=== PATIENT | male | born 1955 | race Caucasian/White ===

== ENCOUNTER 2021-05-01 11:36 | Emergency (ER) | payer MEDICARE, MEDICAID, SELFPAY ==
--- NOTE | 2021-05-01 11:45 | ED_ITS ---
HPI - General Adult General Chief complaint: Dizziness Stated complaint: HIGH BLOOD SUGAR 548PER EMS Time Seen by Provider: 05/01/21 11:45 Source: patient and EMS Mode of arrival: EMS Limitations: no limitations History of Present Illness HPI narrative: 66 yo male from [place] hx of IDDM unsure of the name for his insulin, HTN, HLD, methadone use came here with only a few days of insulin he ran out 3 days ago called 911 for elevated blood sugars complaint: hyperglycemia Onset (ago): day(s) (3) Severity: moderate Relieving factors: none Exacerbating factors: other (lack of insulin) Associated symptoms: loss of appetite Treatments prior to arrival: none Related Data Previous Rx's Medication Instructions Recorded insulin asp prt-insulin aspart 43 unit SUBCUT QAM #15 ml 05/01/21 [Novolog Mix 70-30FlexPen U-100] Allergies Allergy/AdvReac Type Severity Reaction Status Date / Time No Known Allergies Allergy Verified 05/01/21 11:51 Review of Systems Review of Systems: Constitutional : No Weight loss, No Fever, No Chills, No Fatigue, No Malaise ENT/Mouth : No sore throat, No Rhinorrhea Eyes: No Eye Pain, No Swelling, No Redness Cardiovascular : No Chest Pain, No SOB, No Dyspnea on Exertion, No Orthopnea, No Edema, No Palpitations Respiratory : No Cough, No Sputum, No Wheezing Gastrointestinal : No Nausea, No Vomiting, No Diarrhea, No Constipation, No abdominal Pain, No Hematochezia, No Melena Genitourinary : No Dysuria, No Urinary Frequency, No Hematuria, Musculoskeletal : No joint pain, No Myalgias, No Joint Swelling Skin : No Skin Lesions, No rash Neuro : No Weakness, No Numbness, No Dizziness, No Headache Psych : No Anxiety/Panic, No Depression Heme/Lymph: No Bruising, No Bleeding,No Lymphadenopathy Endocrine : pos Polyuria, No Polydipsia, pos elevated blood sugars All other systems reviewed and are negative [facility] Past Medical History Attestation statement: The following information was validated with the patient. Medical History Diabetes HLD (hyperlipidemia) HTN (hypertension) Opiate dependence Social History Social History (Updated 05/01/21 @ 12:06 by Neeru Smith DO) Patient Tobacco Use Status: Former Tobacco user Substance Use Type: Former Substance User Advance Directives: No Advance Directives Information Provided: No Physical Exam Vital Signs: Vital Signs: Last Vital Signs Temp 98.3 F 05/01/21 12:34 Pulse 77 05/01/21 12:34 Resp 12 05/01/21 12:34 BP 159/56 H 05/01/21 12:34 Pulse Ox 97 05/01/21 12:34 Body Mass Index 30.9 Appearance: Alert. Oriented X3. No acute distress. Eyes: Pupils equal, round and reactive to light. ENT: Pharynx normal. Neck: Normal inspection. Neck supple. CVS: Normal heart rate and rhythm. Pulses normal. Respiratory: No respiratory distress. Breath sounds normal. Abdomen: Soft and non-tender. Skin: Skin warm and dry. Normal skin color. Normal skin turgor. Extremities: No lower extremity edema. No calf ttp Neuro: Oriented X 3. No motor deficit. No sensory deficit. Course Course Course Narrative: BS down no signs of DKA - will Rx his home humalog 70/30 of 43 units in the AM and 28 units at PM Medical Decision Making MDM Narrative Medical decision making narrative: 66 yo male with hx of HTN, HLD, IDDM ran out of his insulin 3 days ago he came here from [place] - states he only had a couple of days worth, he isn't even sure what insulin he takes, we've asked him for a picture from home of the pen he is trying to get a family/friend to take a picture and send it to him, he also notes he usually has methadone Rx from [place] but took his last dose today - I am not sure why he came here from [place] without his medications and after questioning it seems he is not either. Lab Data Result diagrams: 05/01/21 12:26 05/01/21 12:26 Labs: Lab Results 05/01/21 05/01/21 05/01/21 Range/Units 11:52 12:26 12:26 WBC 6.5 (4.8-10.8) X10*3/uL RBC 3.88 L (4.60-5.80) X10*6/uL Hgb 11.5 L (14.0-18.0) g/dl Hct 32.1 L (42-52) % MCV 82.7 (80-98) fL MCH 29.6 (27.0-33.0) pg MCHC 35.8 (31.0-36.0) g/dl RDW 12.3 (11.0-16.0) % Plt Count 152 L (160-400) X10*3/uL MPV 11.9 (9.4-12.4) fL Immature Gran % (Auto) 0.2 (0.0-0.4) % Neut % (Auto) 67.9 (45-73) % Lymph % (Auto) 28.2 (20-40) % [place] % (Auto) 1.1 L (2-11) % Eos % (Auto) 2.3 (0-4) % Baso % (Auto) 0.3 (0-2) % Lymph # (Auto) 1.8 (1.2-4.9) X10*3/uL [place] # (Auto) 0.1 (0.1-1.2) X10*3/uL Eos # (Auto) 0.2 (0.0-0.4) X10*3/uL Baso # (Auto) 0.0 (0.0-0.2) X10*3/uL Abs Immat Gran (auto) 0.01 (0.00-0.03) X10*3/uL Absolute Neuts (auto) 4.4 (2.0-8.3) X10*3/uL Absolute Nucleated RBC 0.000 (0.0-0.012) X10*3/uL Nucleated RBC % (auto) 0.0 (0.0-0.2) /100WBC VBG pH (7.32-7.43) VBG pCO2 mmHg VBG pO2 mmHg VBG HCO3 (22-26) mmol/L VBG O2 Saturation % VBG Base Excess mmol/L Sodium 133 L (135-145) mmol/L Potassium 4.4 (3.3-5.1) mmol/L Chloride 99 (96-108) mmol/L Carbon Dioxide 24 (22-29) mmol/L Anion Gap 14 (12-20) BUN 25 H (9-16) mg/dL Creatinine 1.42 H (0.5-1.4) mg/dL Estim Creat Clear Calc 48.6 Estimated GFR 50 POC Glucose 564 H* (60-115) mg/dL Random Glucose 595 H* (60-115) mg/dL Calcium 9.4 (8.4-10.2) mg/dL Magnesium (1.6-2.6) mg/dL Total Bilirubin (0.0-1.0) mg/dL Direct Bilirubin (0.0-0.5) mg/dL AST (5-37) U/L ALT (0-40) U/L Alkaline Phosphatase (39-117) U/L Total Protein (6.5-8.0) g/dL Albumin (3.5-5.0) g/dL Urine Color Urine Appearance Urine pH (5.0-8.0) Ur Specific [place] (1.005-1.025) Urine Protein (NEG-TRACE) MG/DL Urine Glucose (UA) (NEG) MG/DL Urine Ketones (NEG) MG/DL Urine Blood (NEG) Urine Nitrite (NEG) Ur Leukocyte Esterase (NEG) Urine RBC (0) /HPF Urine WBC (0-4) /HPF Ur Squamous Epith Cells /LPF Urine Bacteria /LPF Acetone, Qual (Negative) 05/01/21 05/01/21 05/01/21 Range/Units 12:26 12:26 12:32 WBC (4.8-10.8) X10*3/uL RBC (4.60-5.80) X10*6/uL Hgb (14.0-18.0) g/dl Hct (42-52) % MCV (80-98) fL MCH (27.0-33.0) pg MCHC (31.0-36.0) g/dl RDW (11.0-16.0) % Plt Count (160-400) X10*3/uL MPV (9.4-12.4) fL Immature Gran % (Auto) (0.0-0.4) % Neut % (Auto) (45-73) % Lymph % (Auto) (20-40) % [place] % (Auto) (2-11) % Eos % (Auto) (0-4) % Baso % (Auto) (0-2) % Lymph # (Auto) (1.2-4.9) X10*3/uL [place] # (Auto) (0.1-1.2) X10*3/uL Eos # (Auto) (0.0-0.4) X10*3/uL Baso # (Auto) (0.0-0.2) X10*3/uL Abs Immat Gran (auto) (0.00-0.03) X10*3/uL Absolute Neuts (auto) (2.0-8.3) X10*3/uL Absolute Nucleated RBC (0.0-0.012) X10*3/uL Nucleated RBC % (auto) (0.0-0.2) /100WBC VBG pH 7.49 H (7.32-7.43) VBG pCO2 30 mmHg VBG pO2 183 mmHg VBG HCO3 23 (22-26) mmol/L VBG O2 Saturation 99.0 % VBG Base Excess 0.8 mmol/L Sodium (135-145) mmol/L Potassium (3.3-5.1) mmol/L Chloride (96-108) mmol/L Carbon Dioxide (22-29) mmol/L Anion Gap (12-20) BUN (9-16) mg/dL Creatinine (0.5-1.4) mg/dL Estim Creat Clear Calc Estimated GFR POC Glucose (60-115) mg/dL Random Glucose (60-115) mg/dL Calcium (8.4-10.2) mg/dL Magnesium 2.0 (1.6-2.6) mg/dL Total Bilirubin 0.5 (0.0-1.0) mg/dL Direct Bilirubin 0.2 (0.0-0.5) mg/dL AST 17 (5-37) U/L ALT 18 (0-40) U/L Alkaline Phosphatase 112 (39-117) U/L Total Protein 7.7 (6.5-8.0) g/dL Albumin 4.4 (3.5-5.0) g/dL Urine Color YELLOW Urine Appearance CLEAR Urine pH 6.0 (5.0-8.0) Ur Specific [place] <= 1.005 (1.005-1.025) Urine Protein TRACE (NEG-TRACE) MG/DL Urine Glucose (UA) >=1000 H (NEG) MG/DL Urine Ketones NEG (NEG) MG/DL Urine Blood NEG (NEG) Urine Nitrite NEG (NEG) Ur Leukocyte Esterase NEG (NEG) Urine RBC 0-2 (0) /HPF Urine WBC 0 (0-4) /HPF Ur Squamous Epith Cells NONE /LPF Urine Bacteria NONE /LPF Acetone, Qual Negative (Negative) 05/01/21 Range/Units 13:15 WBC (4.8-10.8) X10*3/uL RBC (4.60-5.80) X10*6/uL Hgb (14.0-18.0) g/dl Hct (42-52) % MCV (80-98) fL MCH (27.0-33.0) pg MCHC (31.0-36.0) g/dl RDW (11.0-16.0) % Plt Count (160-400) X10*3/uL MPV (9.4-12.4) fL Immature Gran % (Auto) (0.0-0.4) % Neut % (Auto) (45-73) % Lymph % (Auto) (20-40) % [place] % (Auto) (2-11) % Eos % (Auto) (0-4) % Baso % (Auto) (0-2) % Lymph # (Auto) (1.2-4.9) X10*3/uL [place] # (Auto) (0.1-1.2) X10*3/uL Eos # (Auto) (0.0-0.4) X10*3/uL Baso # (Auto) (0.0-0.2) X10*3/uL Abs Immat Gran (auto) (0.00-0.03) X10*3/uL Absolute Neuts (auto) (2.0-8.3) X10*3/uL Absolute Nucleated RBC (0.0-0.012) X10*3/uL Nucleated RBC % (auto) (0.0-0.2) /100WBC VBG pH (7.32-7.43) VBG pCO2 mmHg VBG pO2 mmHg VBG HCO3 (22-26) mmol/L VBG O2 Saturation % VBG Base Excess mmol/L Sodium (135-145) mmol/L Potassium (3.3-5.1) mmol/L Chloride (96-108) mmol/L Carbon Dioxide (22-29) mmol/L Anion Gap (12-20) BUN (9-16) mg/dL Creatinine (0.5-1.4) mg/dL Estim Creat Clear Calc Estimated GFR POC Glucose 308 H (60-115) mg/dL Random Glucose (60-115) mg/dL Calcium (8.4-10.2) mg/dL Magnesium (1.6-2.6) mg/dL Total Bilirubin (0.0-1.0) mg/dL Direct Bilirubin (0.0-0.5) mg/dL AST (5-37) U/L ALT (0-40) U/L Alkaline Phosphatase (39-117) U/L Total Protein (6.5-8.0) g/dL Albumin (3.5-5.0) g/dL Urine Color Urine Appearance Urine pH (5.0-8.0) Ur Specific [place] (1.005-1.025) Urine Protein (NEG-TRACE) MG/DL Urine Glucose (UA) (NEG) MG/DL Urine Ketones (NEG) MG/DL Urine Blood (NEG) Urine Nitrite (NEG) Ur Leukocyte Esterase (NEG) Urine RBC (0) /HPF Urine WBC (0-4) /HPF Ur Squamous Epith Cells /LPF Urine Bacteria /LPF Acetone, Qual (Negative) Discharge Plan Discharge Clinical Impression: Acute hyperglycemia Patient Disposition: Home, Self-Care Instructions: Diabetic Hyperglycemia (ED) Additional Instructions: return to ED for any worsening symptoms or concerns PLEASE CALL YOUR DOCTOR IN [place] SOON POSSIBLE Prescriptions: New insulin asp prt-insulin aspart [Novolog Mix 70-30FlexPen U-100] 100 unit/mL (70-30) insulin pen 43 unit subcut QAM Qty: 15 RF: 0 Referrals: Physician,None [Primary Care Provider] - 3 days ([place] doctor)
[2021-05-01 11:51] VITALS: BP 149/76; BP 163/65; PULSE 75; PULSE 81; RESP 12; TEMP 36.8; O2SAT 98; BMI 30.9
[2021-05-01 11:56] LABS: Glucose, Whole Blood 564 mg/dL (60-115)
[2021-05-01] MEDS: Insulin Regular, Human 100 UNIT/ML 3 ML VIAL 10 UNIT IVPUSH (12:14)
[2021-05-01] MEDS: 0.9 % Sodium Chloride 1,000 ML 999 ML IVCONT (12:18)
--- NOTE | 2021-05-01 12:22 | PC.NURSE ---
Pt alert, oriented, POC 564 on arrival, insulin coverage given as documented. The pt states he has been without insulin x3days, loss of appetite, nausea no vomiting. He reports he came from [place] 3wks ago, is on methadone and brought his liquid methadone with him from [place], his last dose this morning. Pt reports he does not have a PCP here in [place] and has not seen a doctor since arriving here. Labs were drawn, fluid hung. Pt resting quietly.
[2021-05-01 12:33] LABS: MANUAL DIFF FLAG NO
[2021-05-01 12:34] VITALS: BP 159/56; PULSE 77; RESP 12; TEMP 36.8; O2SAT 97
[2021-05-01 12:34] LABS: Basophils Percent Auto 0.3 % (0-2); Eosinophils Absolute Auto 0.2 X10*3/uL (0.0-0.4); Eosinophils Percent Auto 2.3 % (0-4); Hematocrit 32.1 % (42-52); Hemoglobin 11.5 g/dl (14.0-18.0); Imm Gran Abs Auto 0.01 X10*3/uL (0.00-0.03); Imm Gran Pct Auto 0.2 % (0.0-0.4); Lymphocytes Absolute Auto 1.8 X10*3/uL (1.2-4.9); Lymphocytes Percent Auto 28.2 % (20-40); Mean Corpuscular HGB Conc 35.8 g/dl (31.0-36.0); Mean Corpuscular Hemoglobin 29.6 pg (27.0-33.0); Mean Corpuscular Volume 82.7 fL (80-98); Mean Platelet Volume 11.9 fL (9.4-12.4); Monocytes Absolute Auto 0.1 X10*3/uL (0.1-1.2); Monocytes Percent Auto 1.1 % (2-11); Neutrophils Absolute Auto 4.4 X10*3/uL (2.0-8.3); Neutrophils Percent Auto 67.9 % (45-73); Platelet Count 152 X10*3/uL (160-400); Red Blood Count 3.88 X10*6/uL (4.60-5.80); Red Cell Distribution Width 12.3 % (11.0-16.0); White Blood Count 6.5 X10*3/uL (4.8-10.8)
[2021-05-01 12:37] LABS: Glucose Urine UA >=1000 MG/DL (NEG); Leukocyte Esterase Urine NEG (NEG); Nitrite Urine NEG (NEG); Specific Gravity - Urine <= 1.005 (1.005-1.025); Urine Blood NEG (NEG); Urine Ketones NEG (NEG); Urine Protein TRACE MG/DL (NEG-TRACE)
[2021-05-01 12:39] LABS: Venous Blood Gas Refer to POC result
[2021-05-01 12:40] LABS: VBG Base Excess 0.8 mmol/L; VBG HCO3 23 mmol/L (22-26); VBG pCO2 30 mmHg; VBG pH 7.49 (7.32-7.43); VBG pO2 183 mmHg
[2021-05-01 12:43] LABS: Appearance Urine CLEAR; Color Urine YELLOW
[2021-05-01 12:49] LABS: RBC Urine 0-2 /HPF (0); WBC Urine 0 /HPF (0-4)
[2021-05-01 13:03] LABS: Alanine Aminotransferase 18 U/L (0-40); Albumin Level 4.4 g/dL (3.5-5.0); Alkaline Phosphatase 112 U/L (39-117); Aspartate Amino Transferase 17 U/L (5-37); Bilirubin Direct 0.2 mg/dL (0.0-0.5); Bilirubin Total 0.5 mg/dL (0.0-1.0); Total Protein 7.7 g/dL (6.5-8.0)
[2021-05-01 13:06] LABS: Anion Gap 14 (12-20); Blood Urea Nitrogen 25 mg/dL (9-16); Calcium 9.4 mg/dL (8.4-10.2); Carbon Dioxide 24 mmol/L (22-29); Chloride 99 mmol/L (96-108); Creatinine Clr Calc Pharmacy 48.6; Estimated Glomerular Filt Rate 50; Glucose Random 595 mg/dL (60-115); Potassium 4.4 mmol/L (3.3-5.1); Sodium 133 mmol/L (135-145)
[2021-05-01 13:14] LABS: Acetone, serum QL Negative (Negative)
[2021-05-01 13:18] LABS: Glucose, Whole Blood 308 mg/dL (60-115)
== END 2021-05-01 15:08 | disposition home or self-care (01) ==
PROVIDERS: Emergency Provider Emergency Medicine
DX: E11.65 Type 2 diabetes mellitus with hyperglycemia (principal); I10 Essential (primary) hypertension; F11.20 Opioid dependence, uncomplicated; Z79.4 Long term (current) use of insulin
CPT/HCPCS: 36415; 80048; 80076; 81001; 82009; 82947; 83735; 85025; 96361; 96374; 99284

== ENCOUNTER 2022-09-01 09:32 | Emergency (ER) | payer MEDICARE, MEDICAID, SELFPAY ==
[2022-09-01 11:15] VITALS: BP 127/61; PULSE 108; RESP 18; TEMP 36.7; O2SAT 95; BMI 30.5
[2022-09-01 13:11] LABS: Appearance Urine Clear; Color Urine Yellow; Glucose Urine UA >=1000 mg/dL (Negative); Leukocyte Esterase Urine Negative (Negative); Nitrite Urine Negative (Negative); Specific Gravity - Urine 1.015 (1.005-1.025); UMIC TRIGGER UACC YES; Urine Blood Negative (Negative); Urine Ketones Negative (Negative); Urine Protein Trace mg/dL (Neg-Trace)
[2022-09-01 13:38] LABS: Bacteria Urine None Seen (None Seen); Hyaline Casts Urine 0-2 /LPF (0-2); RBC Urine 0-2 /HPF (0-2); Squamous Epithelial Cell Urine 0-2 /HPF (0-2); WBC Urine 0-5 /HPF (0-5)
[2022-09-01 15:25] VITALS: BP 108/46; PULSE 87; RESP 16; TEMP 36.1; O2SAT 97
== END 2022-09-01 17:47 | disposition left against medical advice (07) ==
PROVIDERS: Emergency Provider Emergency Medicine
DX: M79.10 Myalgia, unspecified site (principal); M54.50 Low back pain, unspecified
CPT/HCPCS: 81001; 81003; 99282

== ENCOUNTER 2024-11-26 06:49 | Inpatient (IN) | payer MEDICARE, SELFPAY ==
[2024-11-26] VITALS (8 sets, daily range): BP systolic 145–214; BP diastolic 45–93; PULSE 72–93; RESP 12–20; TEMP 36.6–37.6; O2SAT 97–99; BMI 30.6
--- NOTE | ~2024-11-26 | XR_ITS ---
CLINICAL HISTORY: fall, pain Frontal chest and two views of the ribs. Comparison: None Findings: The lungs are adequately expanded. No focal consolidation. No effusion or pneumothorax. Cardiac and mediastinal contours are within normal limits. No acute osseous abnormality. Specifically, no rib fracture detected. Impression: No acute process. This document has been electronically signed by: Lew Waldrop MD on 11/26/2024 07:53:43
--- NOTE | ~2024-11-26 | CT_ITS ---
EXAMINATION: CT HEAD AND FACIAL BONES WITHOUT CONTRAST CLINICAL INFORMATION: Syncope and fall. COMPARISON: No prior. TECHNIQUE: Contiguous axial imaging was performed from the skull base to vertex along with spiral CT of the maxillofacial bones without intravenous administration of contrast. Sagittal, coronal, and thin section axial reformatted images were constructed from the axial data set. This CT examination was performed using dose optimization techniques as appropriate, variously including the following: *Automated exposure control *Adjustment of mA and/or kV according to patient size (this includes techniques or standardized protocols for targeted exams where dose is matched to indication/reason for exam; i.e. extremities or head) *Use of iterative reconstruction technique DLP: 678.7 mGy-cm (CT Head) 329.1 mGy-cm (CT Facial Bones) FINDINGS: There is no evidence of intracranial hemorrhage or extra-axial fluid collection. There is no mass effect, or edema. No CT evidence of acute territorial infarct. Ventricles, sulci, and cisterns are normal in size and configuration for patient age. No hydrocephalus. No midline shift. Negative hyperdense MCA sign. Negative insular ribbon signs. There is mild low density supratentorial white matter changes, in keeping with small vessel ischemia. There are old lacunar type infarcts evident in the anterior gangliocapsular regions and bilateral subinsular regions. No posterior fossa abnormalities. Partial empty sella. Mild atheromatous calcification of the bilateral carotid siphons. Globes and orbital contents image normally. No fractures. Bilateral lens implants. No extracranial soft tissue abnormalities. The paranasal sinuses, mastoid air cells, and tympanic cavities are normally aerated. Nasal septum is midline. No suspicious bony abnormalities. Calvarium intact. Minimal buckling of the left nasal bone, uncertain chronicity. Correlate with point tenderness. Otherwise no fractures. Maxillofacial bones are intact. Mandible is intact. TM joints are normally oriented. CT/CT facial bones wo IV con IMPRESSION: 1. No acute intracranial abnormalities. 2. Minimal buckling of the left nasal bone, uncertain in chronicity. Correlate with point tenderness. Otherwise, no evidence of acute maxillofacial fracture. 3. Ancillary findings as discussed. Electronically signed by: Que Ramey MD 11/26/2024 10:02 AM [facility] [place]
--- NOTE | ~2024-11-26 | US_ITS ---
EXAMINATION: US RETROPERITONEAL LIMITED (RENAL ONLY) CLINICAL INFORMATION: 8 TI with hyperkalemia. COMPARISON: None available. TECHNIQUE: Routine ultrasound RETROPERITONEUM was performed. FINDINGS: RIGHT KIDNEY: 10.2 x 4.5 x 4.3 cm (SAG x AP x TRV). The kidney is normal in size, contour, and echogenicity. Renal cortical thickness is normal. No calculi or focal parenchymal lesions. No hydronephrosis. LEFT KIDNEY: 9.6 x 5.4 x 4.5 cm (SAG x AP x TRV). The kidney is normal in size, contour, and echogenicity. Renal cortical thickness is normal. No calculi or focal parenchymal lesions. No hydronephrosis. US/US renal BI IMPRESSION: Normal renal ultrasound. Electronically signed by: Dony Antonio MD 11/28/2024 07:53 AM [facility]
--- NOTE | ~2024-11-26 | CT_ITS ---
EXAMINATION: CT CERVICAL SPINE WITHOUT CONTRAST CLINICAL INFORMATION: Syncope. Status post fall. COMPARISON: None available. TECHNIQUE: Contiguous axial images through the cervical spine using 3 mm collimation with bone and soft tissue algorithm. Sagittal and coronal reformatted images acquired. This CT examination was performed using dose optimization techniques as appropriate, variously including the following: *Automated exposure control *Adjustment of mA and/or kV according to patient size (this includes techniques or standardized protocols for targeted exams where dose is matched to indication/reason for exam; i.e. extremities or head) *Use of iterative reconstruction technique. DLP: 1517 mGy centimeters. FINDINGS: Limited by patient's motion artifact. Craniocervical junction is intact. Partially calcified periodontal pannus formation. C1 is intact. C2 is intact. C3 is intact. C4 is intact. C5 is intact. C6 is intact. C7 is intact. There is normal alignment. Multilevel marginal osteophyte formation more conspicuous at C6-7 and to a lesser extent C5-6 and C3-4 levels. Calcifications of the ligamentum flavum, C5-6 and C6-7 levels. No gross prevertebral compartment hematoma. Calcified plaques in the carotid bulbs and proximal ICAs more conspicuous on the right side. CT/CT cervical spine wo IV con IMPRESSION: No acute fracture or trauma-related listhesis. Multilevel cervical spondylosis more conspicuous at C6-7 and C5-6. Atherosclerosis disease, carotid arteries. Osteopenia versus osteoporosis. Fleischner guidelines were followed. Electronically signed by: Robby Oneill MD 11/26/2024 09:55 AM [facility]
--- NOTE | ~2024-11-26 | CT_ITS ---
EXAMINATION: CT HEAD AND FACIAL BONES WITHOUT CONTRAST CLINICAL INFORMATION: Syncope and fall. COMPARISON: No prior. TECHNIQUE: Contiguous axial imaging was performed from the skull base to vertex along with spiral CT of the maxillofacial bones without intravenous administration of contrast. Sagittal, coronal, and thin section axial reformatted images were constructed from the axial data set. This CT examination was performed using dose optimization techniques as appropriate, variously including the following: *Automated exposure control *Adjustment of mA and/or kV according to patient size (this includes techniques or standardized protocols for targeted exams where dose is matched to indication/reason for exam; i.e. extremities or head) *Use of iterative reconstruction technique DLP: 678.7 mGy-cm (CT Head) 329.1 mGy-cm (CT Facial Bones) FINDINGS: There is no evidence of intracranial hemorrhage or extra-axial fluid collection. There is no mass effect, or edema. No CT evidence of acute territorial infarct. Ventricles, sulci, and cisterns are normal in size and configuration for patient age. No hydrocephalus. No midline shift. Negative hyperdense MCA sign. Negative insular ribbon signs. There is mild low density supratentorial white matter changes, in keeping with small vessel ischemia. There are old lacunar type infarcts evident in the anterior gangliocapsular regions and bilateral subinsular regions. No posterior fossa abnormalities. Partial empty sella. Mild atheromatous calcification of the bilateral carotid siphons. Globes and orbital contents image normally. No fractures. Bilateral lens implants. No extracranial soft tissue abnormalities. The paranasal sinuses, mastoid air cells, and tympanic cavities are normally aerated. Nasal septum is midline. No suspicious bony abnormalities. Calvarium intact. Minimal buckling of the left nasal bone, uncertain chronicity. Correlate with point tenderness. Otherwise no fractures. Maxillofacial bones are intact. Mandible is intact. TM joints are normally oriented. CT/CT head/brain wo IV con IMPRESSION: 1. No acute intracranial abnormalities. 2. Minimal buckling of the left nasal bone, uncertain in chronicity. Correlate with point tenderness. Otherwise, no evidence of acute maxillofacial fracture. 3. Ancillary findings as discussed. Electronically signed by: Que Ramey MD 11/26/2024 10:02 AM [facility]
--- OUTSIDE RECORDS SUMMARY | 2024-11-26 06:52 | XMS_ITS | Patient Health Record ---
Author Organization [address] [place] [address] Care Team Providers Care Animation Camera Operator Name Role Phone ANA JACKSON Primary Care Provider Unavailabl e Allergies Allergen (clinical drug ingredient) Drug/Non Drug Allergy documented on EMR Reaction Allergy Type Onset Date Status fluticasone Flonase Unknown Drug Allergy Activ e montelukast Singulair Unknown Drug Allergy Activ e Reason For Referral No Information Medications Medication SIG (Take, Route, Frequency, Duration) Notes Start Date End Date Status HumaLOG Mix 75/25 KwikPen Active Losartan Potassium-HCTZ Active Gabapentin - P#6086([facility])NEUROPA THY [id number]%LIDOCA INE3%BACLOFEN3%KALEB APENTIN3% TOPICALLY 2xDAILY for 30 DAYS 08/08/2019 Active Nortriptyline HCl 25 MG 1 capsule Orally Q HS for 30 day(s) 10/18/2018 Active Levothyroxine Sodium Active Lyrica 75 MG 1 capsule Orally every 8 hours 04/05/2019 Active COMPOUND (MEDICAID) RHEUMATOID ARTHRITIS DICLOFENAC 10% [place] 5% [place] 5% APPLY 1-2 GRAMS TOPICAL 3-4 TIMES A DAY for 30 days 01/18/2018 Active Lidoderm 5 % 2 patch to skin remove after 12 hours Externally Once a day for 30 days 06/05/2019 Active HYDROcodone-Acetaminop hen 5-325 MG 1 tablet as needed Orally As prescribed by PCP 07/06/2017 Active Problems Problem Type SNOMED Code ICD Code Onset Dates Problem Status W/U Status Risk Notes Problem Type II diabetes mellitus without complication (593880132) Type 2 diabetes mellitus without complications (E11.9) Active confirmed Problem Diabetic neuropathy (372714976) Diabetes mellitus due to underlying condition with diabetic polyneuropathy (E08.42) Active confirmed Problem Diabetic peripheral neuropathy associated with type 2 diabetes mellitus (8324297447986) Type 2 diabetes mellitus with diabetic neuropathy, unspecified (E11.40) Active confirmed Problem Opioid dependence (86425879) -Opioid dependence, uncomplicated (F11.20) Active confirmed Problem Asthma (371107027) Other asthma (J45.998) Active confirmed Problem Lumbosacral spondylosis without myelopathy (65662274) -Lumbar facet syndrome (M47.816) Active confirmed Problem Chronic pain syndrome (276202492) Chronic pain syndrome (G89.4) Active confirmed Problem 03108138 Other chronic pa in (G89.29) Active confirmed Problem Walking disability (344310701) Difficulty in walking (R26.2) Active confirmed Problem Diabetic neuropathy (822126031) Diabetic neuropathy (E11.40) Active confirmed Plan Of Treatment Pending Test Test Name Order Date Shoulder, left Xray is order 08/03/2016 Lumbar spine MRI (without contrast) is o rder 08/03/2016 Lumbar spine MRI (without contrast) is o rder 01/19/2017 Lumbar spine MRI (without contrast) is o rder 12/11/2018 Lumbar spine MRI (without contrast) is o rder 01/27/2017 Lumbar trigger point (TP3) injection 10/2018 Lumbar trigger point (TP3) injection si joint inj ... blank 01/02/2014 si joint inj ... blank 03/05/2014 tennis' elbow inj ... blank 11/21/2013 EMG of Lower Extremities 11/21/2013 *Methadone (GC/MS), Urine 09/02/2016 *Opiates Confirmation, Urine 09/02/2016 heroin toxasure addon 09/02/2016 *Oxycodone/Oxymorphone Confirm 7 *Oxycodone/Oxymorphone Confirm 6 *Benzodiazepines Confirm, Urine 03/08/20 17 *Benzodiazepines Confirm, Urine 04/05/20 17 *Fentanyl/Norfentanyl, Confirm 6 *Fentanyl/Norfentanyl, Confirm 8 RT subacromial bursa injection 7 Urine COLLECTION was performed today Urine COLLECTION was performed today 09/2018 Urine COLLECTION was performed today Urine COLLECTION was performed today 08/2017 Urine COLLECTION was performed today Urine COLLECTION was performed today Urine COLLECTION was performed today 04/2017 Urine COLLECTION was performed today *Tapentadol Confirmation 12/19/2017 Zolpidem (Ambien) Urine Confirm 04/2018 *Lenco Opiates confirmation 07/30/2017 *Lenco Fentanyl in urine 07/30/2017 Carisoprodol/Meprobamate Confirm, Ur ine 12/19/2017 [facility] Lab Buccal Swabs DNA 06/08/2017 Insurance Providers Payer Name Payer Address Payer Phone Subscriber Number Group Number Insured Name Patient Relationship to Insured Coverage Start Date Coverage End Date [employer] [address] [place] [address] [id number] Robin Shukla Self - patient is the insured Medical (General) History Medical History History ICD Code Rheumatoid arthritis 714.0 Hepatitis C carrier V02.62 Diabetes mellitus without me ntion of complication, type II or unspecified type, not stated as uncontrolled 250.00 Asthma, unspecified with status asthmati cus 493.91 THYROIID Hypertension Surgical History Surgery Date(Month/Year) Lipomectomy. 1998 Hospitalization History Reason Date(Month/Year) DENIES ANY RECENT HOSPITALIZATIONS. N/A
[2024-11-26 07:06] LABS: Glucose, Whole Blood 106 mg/dL (60-115)
[2024-11-26 07:25] LABS: MANUAL DIFF FLAG NO
[2024-11-26 07:28] LABS: Basophils Absolute Auto 0.1 X10*3/uL (0.0-0.2); Eosinophils Absolute Auto 0.3 X10*3/uL (0.0-0.4); Eosinophils Percent Auto 2.6 % (0-4); Hematocrit 25.4 % (42.0-52.0); Hemoglobin 8.5 g/dl (14.0-18.0); Imm Gran Abs Auto 0.04 X10*3/uL (0.00-0.03); Imm Gran Pct Auto 0.4 % (0.0-0.4); Lymphocytes Absolute Auto 1.8 X10*3/uL (1.2-4.9); Lymphocytes Percent Auto 17.3 % (20-40); Mean Corpuscular HGB Conc 33.5 g/dl (31.0-36.0); Mean Corpuscular Hemoglobin 29.4 pg (27.0-33.0); Mean Corpuscular Volume 87.9 fL (80.0-98.0); Mean Platelet Volume 10.8 fL (9.4-12.4); Monocytes Absolute Auto 0.7 X10*3/uL (0.1-1.2); Monocytes Percent Auto 6.6 % (2-11); Neutrophils Absolute Auto 7.6 x10*3/uL (2.0-8.3); Neutrophils Percent Auto 72.1 % (45-73); Platelet Count 215 X10*3/uL (160-400); Red Blood Count 2.89 X10*6/uL (4.60-5.80); Red Cell Distribution Width 13.6 % (11.0-16.0); White Blood Count 10.5 X10*3/uL (4.8-10.8)
[2024-11-26 07:47] LABS: Alanine Aminotransferase 11 U/L (0-40); Alkaline Phosphatase 117 U/L (39-117); Anion Gap 13 (12-20); Aspartate Amino Transferase 21 U/L (5-37); Bilirubin Total 0.3 mg/dL (0.0-1.0); Blood Urea Nitrogen 58 mg/dL (9-16); Calcium 8.6 mg/dL (8.4-10.2); Carbon Dioxide 21 mmol/L (22-29); Chloride 112 mmol/L (96-108); Creatinine Clr Calc Pharmacy 14.6; Estimated Glomerular Filt Rate 13; Glucose Random 112 mg/dL (60-115); Potassium 5.5 mmol/L (3.3-5.1); Sodium 140 mmol/L (135-145); Total Protein 7.2 g/dL (6.5-8.0)
--- OUTSIDE RECORDS SUMMARY | 2024-11-26 08:33 | XMS_ITS | Data Portability ---
Author Organization [facility] ([facility], COVID - BMS @ Main Address [address] [place] [address] Care Team Providers Care Skid Worker Name Role Phone DAISY SANTOYO Primary Care Provider Assessment Encounter Date Assessment Date Assessment LastModified by Organization Details LastModified Time 07/12/2024 07/12/2024 Blood and urine test results from 06/14/24 reviewed with the patient patricia Not available 07/12/2024 12:28:53 Plan of Treatment Reminders Order Date Submit Date Provider Last Modified By Organization Details Last Modified Time Details Appointments Medical Appt. 2024 02:00P Bety Santoyo MD Not available Not available Not available Lab lipid panel, serum 2018 019 [email or web address] [facility], [address] [place] [address], [id number], 03/14/2019 14:46:28 CBC w/ auto diff 2018 019 [email or web address] [facility], [address] [place] [address], [id number], 03/14/2019 14:45:36 CMP, serum or plasma 2018 019 [id number] [facility], [address] [place] [address], [id number], 03/14/2019 14:45:52 urinaly sis, complet e 2018 019 ZARIA [facility], [address] [place] [address], [id number], 03/14/2019 11:32:58 glucose , fingers tick, blood 2018 019 ayanna Chavez-Eddie @ [facility], [address] [place], [address], 03/14/2019 11:32:48 microal bumin/c reatini ne, mass ratio, urine 2018 019 [email or web address] [facility], [address] [place] [address], [id number], 04/09/2019 11:42:17 HbA1c (hemogl obin A1c), blood 2018 019 [email or web address] [facility], [address] [place] [address], [id number], 03/14/2019 14:46:10 iron + TIBC + ferriti n, serum 2018 019 [facility], [address] [place] [address], [id number], 03/30/2019 05:09:12 fecal occult blood, stool 2018 019 [facility], [address] [place] [address], [id number], 11/03/2019 19:52:38 glucose , fingers tick, blood 2018 019 [facility] @ [address], [address], 03/29/2019 16:46:51 glucose , fingers tick, blood 2023 024 [facility] @ [address], [id number], 06/14/2024 15:15:40 HIV (1+O+2) Ab, serum 2023 024 [facility], [address] [place] [address], [id number], 06/18/2024 11:40:07 RPR (rapid plasma reagin) , serum 2023 024 [facility], [address] [place] [address], [address], 06/18/2024 11:40:06 CT + NG DNA, PCR, unspeci fied specime n 2023 024 [facility], [address] [place] [address], [id number], 06/18/2024 11:40:10 hepatit is C Ab, serum 2023 024 [facility], [address] [place] [address], [id number], 06/18/2024 11:40:08 trichom onas vaginal is RNA 2023 024 [facility], [address] [place] [address], [id number], 06/18/2024 11:40:04 CBC w/ diff 2023 024 [facility], [address] [place] [address], [id number], 06/18/2024 11:40:00 HbA1c (hemogl obin A1c), blood 2023 024 [facility], [address] [place] [address], [address], 06/18/2024 11:39:58 TSH, serum or plasma 2023 024 [facility], [address] [place] [address], [id number], 06/18/2024 11:39:59 CMP, serum or plasma 2023 024 [facility], [address] [place] [address], [id number], 06/18/2024 11:39:55 lipid panel, serum 2023 024 [facility], [address] [place] [address], [address], 06/18/2024 11:39:57 vitamin D, 25-hydr oxy, total, serum 2023 024 [facility], [address] [place] [address], [id number], 06/18/2024 11:40:03 urinaly sis, complet e 2023 024 [facility], [address] [place] [address], [id number], 06/18/2024 11:40:02 prostat e specifi c Ag, QN, serum or plasma 2023 024 [facility], [address] [place] [address], [address], 06/18/2024 11:40:11 glucose , fingers tick, blood 2023 024 [facility] @ [address], [address], 07/12/2024 12:39:21 glucose , fingers tick, blood 2023 024 [facility], [address] [place] [address], [address], 08/19/2024 15:45:28 Referral nutriti onist/d ramu oseguera l 2018 019 ryland Strong, [address] [place] [address], [id number], 03/14/2019 14:41:43 diabeti c ophthal mology referra l - diabeti c eye exam 2023 024 [facility], [address] [place] [address], [id number], 07/24/2024 11:21:22 podiatr ist referra l 2023 024 diego Jose David Hopper, [address] [place] [address], [address], 06/19/2024 10:00:37 diabeti c ophthal mology referra l - diabeti c eye exam 2023 024 [facility], [address] [place] [address], [address], 09/12/2024 16:20:01 podiatr ist referra l 2023 024 tammie Jose David Hopper, [address] [place] [address], [id number], 07/17/2024 12:36:30 nephrol ogist referra l 2023 024 tammie Chaudhry, [address] [place] [address], [id number], 07/17/2024 12:38:46 Procedures None recorde d. Surgeries None recorde d. Imaging US, kidney [id number], [address], 04/05/2019 11:49:53 US, bladder 2018 [email or web address], [address], 04/05/2019 11:59:13 electro cardiog nury 2023 024 [email or web address] [facility] @ [facility], [address] [place] [address], [phone], 06/14/2024 16:27:24 US, renal [email or web address], [facility], [facility], [place], [address], 08/06/2024 16:00:33 Medication Orders FeroSul 325 mg (65 mg iron) tablet [address], [address] [place] [address], [address], 04/18/2020 15:11:13 ergocal ciferol (vitami n D2) 1,250 mcg (50,000 unit) capsule [address], [address] [place] [address], [address], 04/18/2020 15:11:16 metform in 500 mg tablet 2018 019 [facility], [address] [place] [address], [address], 03/29/2019 16:47:07 Tylenol Extra Strengt h 500 mg tablet 2023 024 [facility], [address] [place] [address], [address], 06/26/2024 16:50:49 gabapen tin 400 mg capsule [address] [facility], [address] [place] [address], [id number], 08/14/2024 09:57:06 Blood Glucose Test strips 2023 024 [facility], [address] [place] [address], [address], 06/14/2024 15:18:03 Novolog Mix 70-30 U-100 Insulin 100 unit/mL subcuta neous solutio n [address] [facility], [address] [place] [address], 58[address], 06/26/2024 16:50:49 atorvas tatin 10 mg tablet 2023 024 [facility], [address] [place] [address], 287[address], 10/15/2024 11:29:34 losarta n 100 mg-hydr ochloro thiazid e 12.5 mg tablet 2023 024 [facility], [address] [place] [address], [address], 09/20/2024 16:14:23 amlodip ine 10 mg tablet 2023 024 [facility], [address] [place] [address], 78[address], 10/15/2024 15:37:45 levothy roxine 100 mcg tablet 2023 024 [facility], [address] [place] [address], [address], 09/20/2024 16:14:24 Ventoli n HFA 90 mcg/act uation aerosol inhaler 2023 024 [facility], [address] [place] [address], 555[address], 10/15/2024 15:40:54 Symbico rt 160 mcg-4.5 mcg/act uation HFA aerosol inhaler 2023 024 [facility], [address] [place] [address], [id number], 06/14/2024 15:18:05 Ozempic 1 mg/dose (4 mg/3 mL) subcuta neous pen injecto r 2023 024 [facility], [address] [place] [address], [id number], 08/14/2024 09:57:07 triamci nolone acetoni de 0.1 % topical ointmen t 2023 024 [facility], [address] [place] [address], [id number], 09/04/2024 13:12:15 Lokelma 10 gram oral powder packet 2023 024 [facility], [address] [place] [address], [id number], 07/12/2024 15:32:20 Vitamin D2 1,250 mcg (50,000 unit) capsule 2023 024 [facility], [address] [place] [address], 736[address], 10/15/2024 15:40:54 albuter ol sulfate 2.5 mg/3 mL (0.083 %) solutio n for nebuliz ation 2023 024 [facility], [address] [place] [address], 720[address], 10/15/2024 15:40:55 Breo Ellipta 200 mcg-25 mcg/dos e powder for inhalat ion [address] [facility], [address] [place] [address], [id number], 09/04/2024 13:12:14 ammoniu m lactate 12 % lotion [address] [facility], [address] [place] [address], [address], 08/19/2024 15:46:14 Patient TargetsNo targets recorded. Patient Instructions Encounter Date Encounter Id Patient Instructions Last Modified By Organization Details Last Modified Time 03/14/2019 [id number] When You Want to Lose Weight: Care Instructions [email or web address] Not available 03/14/2019 11:32:48 proporci??n alb??maury-creatin sylvia: acerca de esta prueba - [albumin-creatini ne ratio: about this test] [email or web address] Not available 03/14/2019 11:32:48 aprenda sobre la presi??n arterial bryce - [learning about high blood pressure] [email or web address] Not available 03/14/2019 11:32:48 presi??n arteria l bryce: instrucciones de cuidado - [high blood pressure: care instructions] [email or web address] Not available 03/14/2019 11:32:48 03/29/2019 [id number] high cholesterol : care instructions Not available 03/29/2019 16:53:12 When You Want to Lose Weight: Care Instructions Not available 03/29/2019 16:46:51 anemia: instrucciones de cuidado - [anemia: care instructions] Not available 03/29/2019 16:46:51 diabetes tipo 2: instrucciones de cuidado - [type 2 diabetes: care instructions] Not available 03/29/2019 16:46:51 hipotiroidismo: instrucciones de cuidado - [hypothyroidism: care instructions] Not available 03/29/2019 16:53:12 aprenda sobre la presi??n arterial bryce - [learning about high blood pressure] Not available 03/29/2019 16:53:12 presi??n arteria l bryce: instrucciones de cuidado - [high blood pressure: care instructions] Not available 03/29/2019 16:53:12 06/14/2024 [id number] When You Want to Lose Weight: Care Instructions Not available 06/14/2024 15:15:26 07/12/2024 [id number] When You Want to Lose Weight: Care Instructions Not available 07/12/2024 12:39:17 08/19/2024 [id number] When You Want to Lose Weight: Care Instructions Not available 08/19/2024 15:45:25 hongos en las u?? de los pies: instrucciones de cuidado - [toenail fungus: care instructions] Not available 08/19/2024 15:45:25 diabetes tipo 2: instrucciones de cuidado - [type 2 diabetes: care instructions] Not available 08/19/2024 15:45:25 diabetic foot care education Not available 08/19/2024 15:45:25 diabetes foot health: care instructions Not available 08/19/2024 15:45:25 Reason for Referral Manual Machinist/dietitian Refer ral for Dietary management surveillance Referring Physician: Becky Chaudhry, Nephrology, Encounter Date: 03/14/2019 Diabetic Ophthalmology Refer ral for Type 2 diabetes mellitus diabetic eye exam Referring Physician: Daisy Santoyo [facility], Encounter Date: 06/14/2024 Linen Manager Referral for Type 2 diabetes mellitus Referring Physician: Daisy Santoyo [facility], Encounter Date: 06/14/2024 Diabetic Ophthalmology Refer ral for Type 2 diabetes mellitus diabetic eye exam Referring Physician: Daisy Santoyo [facility], Encounter Date: 07/12/2024 Linen Manager Referral for Type 2 diabetes mellitus Referring Physician: Daisy Santoyo [facility], Encounter Date: 07/12/2024 Liquor Store Manager Referral for Ch ronic kidney disease stage 4 Referring Physician: Daisy Santoyo [facility], Encounter Date: 07/12/2024 Results Created Date Observation Date Name Description Value Unit Range Abnormal Flag Note LastModifiedBy Organization Detail LastModifiedTime 03/14/2003/15/2019 lipid panel , serum cholesterol 128 mg/dL 100-19 9 normal Not Available [facility] [address] [place], [address], 03/15/2019 04:35:50 03/14/2003/15/2019 lipid panel , serum triglyceride s 218 mg/dL 20-149 high Not Available [facility] [address] [place], [address], 03/15/2019 04:35:50 03/14/2003/15/2019 lipid panel , serum HDL cholesterol 28 mg/dL >=40 low Not Available [facility] [address] [place], [address], 03/15/2019 04:35:50 03/14/20 19 03/15/2019 lipid panel , serum LDL chol, calculated 56 mg/dL <100 normal ADULT LDL ANURAG STERO L CLASS IFICA TION <100m g/dL_ ____O ptima l 100-1 29___ ____N ear/A akua Optim al 130-1 59mg/ dL___ ____B order line High >160m g/dL_ ____H igh Risk Vimal able range <100 mg/dL for patie nts with CHD or diabe kendell and <70 mg/dL for diabe tic patie nts with known heart disea se. Direc t LDL is recom susannah d for patie nts with trigl yceri mare >400. Not Available [facility] [address] [place], [address], 03/15/2019 04:35:50 03/14/2003/15/2019 lipid panel , serum VLDL 44 mg/dL <30 high Not Available [facility] [address] [place], [address], 03/15/2019 04:35:50 03/14/2003/15/2019 HbA1c (hemo globi n A1c), blood hemoglobin A1C 7.8 % <5.7 high Predi abete s: 5.7% to 6.4% Diabe kendell: >6.4% Glyce justen contr ol for adult s with diabe kendell: <7.0% Use with cauti on in patie nts with abnor mal hemog lobin varia nts as the half- life of red blood cells and in vivo glyca tion rates are affec alessia. Not Available [facility] [address] [place], [address], 03/15/2019 04:35:50 03/14/2003/15/2019 CBC w/ auto diff WBC 11.0 thds/ cmm 3.6-11 .0 normal Not Available [facility] [address] [place], [address], 03/15/2019 04:35:51 03/14/2003/15/2019 CBC w/ auto diff RBC 4.10 mill/ cmm 4.40-6 .10 low Not Available [facility] [address] [place] [address], [address], 03/15/2019 04:35:51 03/14/2003/15/2019 CBC w/ auto diff hemoglobin 12.3 g/dL 13.0-1 8.0 low Not Available [facility] [address] [place] [address], [address], 03/15/2019 04:35:51 03/14/2003/15/2019 CBC w/ auto diff hematocrit 35.7 % 39-52 low Not Available [address], [address], 03/15/2019 04:35:51 03/14/2003/15/2019 CBC w/ auto diff MCV 87 fL 75-100 normal Not Available [address], [address], 03/15/2019 04:35:51 03/14/2003/15/2019 CBC w/ auto diff MCH 30.0 pg 26.0-3 2.0 normal Not Available [address], [address], 03/15/2019 04:35:51 03/14/2003/15/2019 CBC w/ auto diff MCHC 34.5 g/dL 32.0-3 5.0 normal Not Available [address], [address], 03/15/2019 04:35:51 03/14/2003/15/2019 CBC w/ auto diff RDW 13.8 % 11.2-1 4.8 normal Not Available [address], [address], 03/15/2019 04:35:51 03/14/2003/15/2019 CBC w/ auto diff platelet count 165 thous /cmm 140-44 0 normal Not Available [facility] [address], [address], 03/15/2019 04:35:51 03/14/20 19 03/15/2019 CBC w/ auto diff polys 60.4 % 45-75 normal Not Available [address], [address], 03/15/2019 04:35:51 03/14/2003/15/2019 CBC w/ auto diff lymphs 25.4 % 20-45 normal Not Available [address], [address], 03/15/2019 04:35:51 03/14/2003/15/2019 CBC w/ auto diff monos 8.2 % 0-13 normal Not Available [address], [address], 03/15/2019 04:35:51 03/14/2003/15/2019 CBC w/ auto diff eos 4.6 % 0-5 normal Not Available [address], [address], 03/15/2019 04:35:51 03/14/2003/15/2019 CBC w/ auto diff basos 1.0 % 0-2 normal Not Available [address], [address], 03/15/2019 04:35:51 03/14/2003/15/2019 CBC w/ auto diff immature granulocytes 0.4 % 0-2 normal Not Available [address], [address], 03/15/2019 04:35:51 03/14/2003/15/2019 CBC w/ auto diff absolute neutrophils 6.62 K/uL 1.9-8. 0 normal Not Available [address], [address], 03/15/2019 04:35:51 03/14/2003/15/2019 CBC w/ auto diff absolute lymphs 2.78 K/uL 0.9-5. 2 normal Not Available [facility] [address] [place] [address], [address], 03/15/2019 04:35:51 03/14/2003/15/2019 CBC w/ auto diff absolute monos 0.90 K/uL 0.1-1. 0 normal Not Available [address], [address], 03/15/2019 04:35:51 03/14/2003/15/2019 CBC w/ auto diff absolute eos 0.50 K/uL 0.0-0. 80 normal Not Available [address], [address], 03/15/2019 04:35:51 03/14/2003/15/2019 CBC w/ auto diff absolute baso 0.11 K/uL 0.0-0. 2 normal Not Available [address], [address], 03/15/2019 04:35:51 03/14/2003/15/2019 CBC w/ auto diff absolute immature granulocytes 0.04 K/uL 0.00-0 .06 normal Not Available [address], [address], 03/15/2019 04:35:51 03/14/2003/14/2019 gluco se, finge rstic k, blood adult fasting mg/dL 70-110 Not Available [facility] @ [address], [address], 03/14/2019 11:21:15 03/14/2003/14/2019 gluco se, finge rstic k, blood adult non-fasting 133 mg/dL 70-200 Not Available [facility] @ [address], [address], 03/14/2019 11:21:15 03/29/20 19 03/30/2019 iron + TIBC + marisa tin, serum iron,serum 73 ug/dL 59-158 normal Not Available [facility] [address] [place] [address], [address], 03/30/2019 05:09:12 03/29/20 19 03/30/2019 iron + TIBC + marisa tin, serum UIBC 162 ug/dL 112-34 7 normal Not Available [facility] [address] [place] [address], [address], 03/30/2019 05:09:12 03/29/20 19 03/30/2019 iron + TIBC + marisa tin, serum iron binding capacity,tot 235 ug/dL 250-45 0 low Not Available [facility] [address] [place] [address], [address], 03/30/2019 05:09:12 03/29/20 19 03/30/2019 iron + TIBC + marisa tin, serum ferritin 337 NG/mL 30-400 normal Not Available [address], [address], 03/30/2019 05:09:12 03/29/20 19 03/29/2019 gluco se finge rstic k, blood adult fasting mg/dL 70-110 Not Available [facility] @ [address], [address], 03/29/2019 16:12:32 03/29/20 19 03/29/2019 gluco se finge rstic k, blood adult non-fasting 282 mg/dL 70-200 Not Available [facility] @ [address], [address], 03/29/2019 16:12:32 06/14/20 24 06/15/2024 COMPR EHENS ROSE METAB OLIC PANEL (AMA) glucose 57 mg/dL 70-100 low False ly decre ased gluco se resul ts may be cause d by prolo nged conta ct with red cells when colle cted in corva c tubes . Not Available [facility] [address] [place] [address], [address], 06/18/2024 11:39:55 06/14/20 24 06/15/2024 COMPR EHENS ROSE METAB OLIC PANEL (AMA) sodium 141 mmol/ L 135-14 8 normal Not Available [address], [address], 06/18/2024 11:39:55 06/14/20 24 06/15/2024 COMPR EHENS ROSE METAB OLIC PANEL (AMA) potassium 5.7 mmol/ L 3.5-5. 4 high Potas sium resul ts may be false ly incre ased due to prolo nged conta ct of serum with cells , or in cases of incom plete centr ifuga tion when using serum separ ator tubes . Not Available [address], [address], 06/18/2024 11:39:55 06/14/20 24 06/15/2024 COMPR EHENS ROSE METAB OLIC PANEL (AMA) chloride 107 mmol/ L 96-107 normal Not Available [address], [address], 06/18/2024 11:39:55 06/14/20 24 06/15/2024 COMPR EHENS ROSE METAB OLIC PANEL (AMA) carbon dioxide 19 mmol/ L 18-32 normal Not Available [address], [address], 06/18/2024 11:39:55 06/14/20 24 06/15/2024 COMPR EHENS ROSE METAB OLIC PANEL (AMA) urea nitrogen 40 mg/dL 8-23 high Not Available [address], [address], 06/18/2024 11:39:55 06/14/20 24 06/15/2024 COMPR EHENS ROSE METAB OLIC PANEL (AMA) creatinine 3.60 mg/dL 0.67-1 .30 high Not Available [address], [place], [address], 06/18/2024 11:39:55 06/14/20 24 06/15/2024 COMPR EHENS ROSE METAB OLIC PANEL (AMA) eGFR 2020 CKD-epi 17 mL/mi n/1.7 3m2 >59 low Not Available [facility] [address] [place] [address], [address], 06/18/2024 11:39:55 06/14/20 24 06/15/2024 COMPR EHENS ROSE METAB OLIC PANEL (AMA) calcium 9.5 mg/dL 8.6-10 .5 normal Not Available [facility] [address] [place] [address], [address], 06/18/2024 11:39:55 06/14/20 24 06/15/2024 COMPR EHENS ROSE METAB OLIC PANEL (AMA) total protein 6.3 g/dL 6.0-8. 3 normal Not Available [facility] [address] [place] [address], [address], 06/18/2024 11:39:55 06/14/20 24 06/15/2024 COMPR EHENS ROSE METAB OLIC PANEL (AMA) albumin 3.8 g/dL 3.5-5. 2 normal Not Available [facility] [address] [place] [address], [address], 06/18/2024 11:39:55 06/14/20 24 06/15/2024 COMPR EHENS ROSE METAB OLIC PANEL (AMA) globulin 2.5 g/dL 1.8-3. 8 normal Not Available [facility] [address] [place] [address], [address], 06/18/2024 11:39:55 06/14/20 24 06/15/2024 COMPR EHENS ROSE METAB OLIC PANEL (AMA) A/G 1.5 ratio 1.0-2. 5 normal Not Available [facility] [address] [place] [address], [address], 06/18/2024 11:39:55 06/14/20 24 06/15/2024 COMPR EHENS ROSE METAB OLIC PANEL (AMA) alkaline phosphatase 129 U/L 39-118 high Not Available [address], [address], 06/18/2024 11:39:55 06/14/20 24 06/15/2024 COMPR EHENS ROSE METAB OLIC PANEL (AMA) AST(SGOT) 16 U/L 9-50 normal Not Available [address], [address], 06/18/2024 11:39:55 06/14/20 24 06/15/2024 COMPR EHENS ROSE METAB OLIC PANEL (AMA) ALT(SGPT) 11 U/L 5-41 normal Not Available [address], [address], 06/18/2024 11:39:55 06/14/20 24 06/15/2024 COMPR EHENS ROSE METAB OLIC PANEL (AMA) bilirubin,to marco 0.2 mg/dL <1.3 normal Not Available [address], [address], 06/18/2024 11:39:55 06/14/20 24 06/15/2024 LIPID PANEL (AMA) cholesterol 191 mg/dL 100-19 9 normal Not Available [address], [address], 06/18/2024 11:39:57 06/14/20 24 06/15/2024 LIPID PANEL (AMA) HDL cholesterol 30 mg/dL >=40 low Not Available [address], [address], 06/18/2024 11:39:57 06/14/20 24 06/15/2024 LIPID PANEL (AMA) LDL chol, calculated SEE NOTE mg/dL <100 normal Unabl e to calcu late LDL due to trigl yceri mare great er than 400 mg/dl . ADULT LDL ANURAG STERO L CLASS IFICA TION <100m g/dL_ ____O ptima l 100-1 29___ ____N ear/A akua Optim al 130-1 59mg/ dL___ ____B order line High >160m g/dL_ ____H igh Risk Vimal able range <100 mg/dL for patie nts with CHD or diabe kendell and <70 mg/dL for diabe tic patie nts with known heart disea se. Direc t LDL is recom susannah d for patie nts with trigl yceri mare >400. Not Available [facility] [address] [place], [address], 06/18/2024 11:39:57 06/14/20 24 06/15/2024 LIPID PANEL (AMA) VLDL 94 mg/dL <30 high Not Available [facility] [address] [place], [address], 06/18/2024 11:39:57 06/14/20 24 06/15/2024 LIPID PANEL (AMA) triglyceride s 469 mg/dL 20-149 high Not Available [facility] [address] [place] [address], [address], 06/18/2024 11:39:57 06/14/20 24 06/15/2024 LIPID PANEL (AMA) cholesterol/ HDL ratio 6.4 2.0-4. 5 high Not Available [facility] [address] [place], [address], 06/18/2024 11:39:57 06/14/20 24 06/14/2024 HEMOG LOBIN A1C hemoglobin A1C 7.1 % <5.7 high Predi abete s: 5.7% to 6.4% Diabe kendell: >6.4% Glyce justen contr ol for adult s with diabe kendell: <7.0% Use with cauti on in patie nts with abnor mal hemog lobin varia nts as the half- life of red blood cells and in vivo glyca tion rates are affec alessia. Not Available [address], [address], 06/18/2024 11:39:58 06/14/20 24 06/15/2024 TSH WITH REFLE X TO FREE T4 TSH,ultrasen sitive 6.19 uIU/m L 0.270- 4.200 high Not Available [address], [address], 06/18/2024 11:39:59 06/14/20 24 06/15/2024 FREE T-4 free T-4 1.21 NG/dL 0.80-1 .90 normal Not Available [address], [address], 06/18/2024 11:39:59 06/14/20 24 06/14/2024 CBC WITH DIFFE RENTI AL AND PLATE LETS WBC 10.2 thds/ cmm 3.6-11 .0 normal Not Available [address], [address], 06/18/2024 11:40:00 06/14/20 24 06/14/2024 CBC WITH DIFFE RENTI AL AND PLATE LETS RBC 3.42 mill/ cmm 4.40-6 .10 low Not Available [address], [address], 06/18/2024 11:40:00 06/14/20 24 06/14/2024 CBC WITH DIFFE RENTI AL AND PLATE LETS hemoglobin 10.1 g/dL 13.0-1 8.0 low Not Available [address], [address], 06/18/2024 11:40:00 06/14/20 24 06/14/2024 CBC WITH DIFFE RENTI AL AND PLATE LETS hematocrit 31.0 % 39-52 low Not Available [address], [address], 06/18/2024 11:40:00 06/14/20 24 06/14/2024 CBC WITH DIFFE RENTI AL AND PLATE LETS MCV 91 fL 75-100 normal Not Available [address], [address], 06/18/2024 11:40:00 06/14/20 24 06/14/2024 CBC WITH DIFFE RENTI AL AND PLATE LETS MCH 29.5 pg 26.0-3 2.0 normal Not Available [address], [address], 06/18/2024 11:40:00 06/14/20 24 06/14/2024 CBC WITH DIFFE RENTI AL AND PLATE LETS MCHC 32.6 g/dL 32.0-3 5.0 normal Not Available [address], [address], 06/18/2024 11:40:00 06/14/20 24 06/14/2024 CBC WITH DIFFE RENTI AL AND PLATE LETS RDW 13.8 % 11.2-1 4.8 normal Not Available [address], [address], 06/18/2024 11:40:00 06/14/20 24 06/14/2024 CBC WITH DIFFE RENTI AL AND PLATE LETS platelet count 200 thous /cmm 140-44 0 normal Not Available [address], [address], 06/18/2024 11:40:00 06/14/20 24 06/14/2024 CBC WITH DIFFE RENTI AL AND PLATE LETS polys 48.3 % 45-75 normal Not Available [address], [address], 06/18/2024 11:40:00 06/14/20 24 06/14/2024 CBC WITH DIFFE RENTI AL AND PLATE LETS lymphs 36.7 % 20-45 normal Not Available [address], [address], 06/18/2024 11:40:00 06/14/20 24 06/14/2024 CBC WITH DIFFE RENTI AL AND PLATE LETS monos 8.8 % 0-13 normal Not Available [address], [address], 06/18/2024 11:40:00 06/14/20 24 06/14/2024 CBC WITH DIFFE RENTI AL AND PLATE LETS eos 5.0 % 0-5 normal Not Available [address], [address], 06/18/2024 11:40:00 06/14/20 24 06/14/2024 CBC WITH DIFFE RENTI AL AND PLATE LETS basos 0.8 % 0-2 normal Not Available [address], [address], 06/18/2024 11:40:00 06/14/20 24 06/14/2024 CBC WITH DIFFE RENTI AL AND PLATE LETS immature granulocytes 0.4 % 0-2 normal Not Available [address], [address], 06/18/2024 11:40:00 06/14/20 24 06/14/2024 CBC WITH DIFFE RENTI AL AND PLATE LETS absolute neutrophils 4.93 K/uL 1.9-8. 0 normal Not Available [address], [address], 06/18/2024 11:40:00 06/14/20 24 06/14/2024 CBC WITH DIFFE RENTI AL AND PLATE LETS absolute lymphs 3.75 K/uL 0.9-5. 2 normal Not Available [address], [address], 06/18/2024 11:40:00 06/14/20 24 06/14/2024 CBC WITH DIFFE RENTI AL AND PLATE LETS absolute monos 0.90 K/uL 0.1-1. 0 normal Not Available [address], [address], 06/18/2024 11:40:00 06/14/20 24 06/14/2024 CBC WITH DIFFE RENTI AL AND PLATE LETS absolute eos 0.51 K/uL 0.0-0. 80 normal Not Available [address], [address], 06/18/2024 11:40:00 06/14/20 24 06/14/2024 CBC WITH DIFFE RENTI AL AND PLATE LETS absolute baso 0.08 K/uL 0.0-0. 2 normal Not Available [address], [address], 06/18/2024 11:40:00 06/14/20 24 06/14/2024 CBC WITH DIFFE RENTI AL AND PLATE LETS absolute immature granulocytes 0.04 K/uL 0.00-0 .06 normal Not Available [address], [address], 06/18/2024 11:40:00 06/14/20 24 06/14/2024 URINA LYSIS , COMPL ETE pH 5.5 5.0-8. 0 normal Not Available [address], [address], 06/18/2024 11:40:01 06/14/20 24 06/14/2024 URINA LYSIS , COMPL ETE specific gravity 1.020 1.005- 1.030 normal Not Available [address], [address], 06/18/2024 11:40:01 06/14/20 24 06/14/2024 URINA LYSIS , COMPL ETE appearance CLEAR clear normal Not Available [facility] [address] [place], [address], 06/18/2024 11:40:01 06/14/20 24 06/14/2024 URINA LYSIS , COMPL ETE color YELLOW yellow normal Not Available [facility] [address] [place], [address], 06/18/2024 11:40:01 06/14/20 24 06/14/2024 URINA LYSIS , COMPL ETE protein 3+ negati ve abnormal Not Available [facility] [address] [place] [address], [address], 06/18/2024 11:40:06/14/20 24 06/14/2024 URINA LYSIS , COMPL ETE glucose,urin e NEGATI VE negati ve normal Not Available [facility] [address] [place] [address], [address], 06/18/2024 11:40:01 06/14/20 24 06/14/2024 URINA LYSIS , COMPL ETE ketone NEGATI VE negati ve normal Not Available [facility] [address] [place] [address], [address], 06/18/2024 11:40:01 06/14/20 24 06/14/2024 URINA LYSIS , COMPL ETE bilirubin NEGATI VE negati ve normal Not Available [facility] [address] [place] [address], [address], 06/18/2024 11:40:01 06/14/20 24 06/14/2024 URINA LYSIS , COMPL ETE blood NEGATI VE negati ve normal Not Available [facility] [address] [place] [address], [address], 06/18/2024 11:40:01 06/14/20 24 06/14/2024 URINA LYSIS , COMPL ETE leukocyte esterase NEGATI VE negati ve normal Not Available [facility] [address] [place] [address], [address], 06/18/2024 11:40:01 06/14/20 24 06/14/2024 URINA LYSIS , COMPL ETE nitrite NEGATI VE negati ve normal Not Available [facility] [address] [place] [address], [address], 06/18/2024 11:40:01 06/14/20 24 06/14/2024 URINA LYSIS , COMPL ETE urobilinogen <2 mg/dL <2 normal Not Available [address], [address], 06/18/2024 11:40:01 06/14/20 24 06/14/2024 URINA LYSIS , COMPL ETE WBC,urine 0-5 hpf 0-5 normal Not Available [address], [address], 06/18/2024 11:40:01 06/14/20 24 06/14/2024 URINA LYSIS , COMPL ETE RBC,urine 0-2 hpf 0-2 normal Not Available [address], [address], 06/18/2024 11:40:06/14/20 24 06/14/2024 URINA LYSIS , COMPL ETE squamous epithelial cells 0-2 hpf none normal Not Available [facility] [address] [place] [address], [address], 06/18/2024 11:40:06/14/20 24 06/14/2024 URINA LYSIS , COMPL ETE bacteria NONE none normal Not Available [facility] [address] [place] [address], [address], 06/18/2024 11:40:06/14/20 24 06/14/2024 URINA LYSIS , COMPL ETE hyaline casts FEW lpf none abnormal Not Available [facility] [address] [place] [address], [address], 06/18/2024 11:40:06/14/20 24 06/14/2024 URINA LYSIS , COMPL ETE granular casts PRESEN T lpf <2 abnormal Not Available [facility] [address] [place], [address], 06/18/2024 11:40:01 06/14/20 24 06/15/2024 VITAM IN D, 25-OH , TOTAL vitamin D, 25-oh, total 15.1 NG/mL 30.0-1 00.0 low 25- OH VITAM IN D INTER PRETA TION Defic iency .... <20.0 ng/ml Insuf ficie ncy.. 20.0- 29.0 ng/ml Suffi cienc y.... 30.0- 100.0 ng/ml Possi ble Toxic ity.. .>150 ng/ml Not Available [facility] [address] [place], [address], 06/18/2024 11:40:03 06/14/20 24 06/15/2024 TRICH OMONA S VAGIN LORENA, AMPLI FIED, UR trichomonas vaginalis,am p,ur NEGATI VE negati ve normal This assay is not inten ded for the evalu ation of suspe cted sexua l abuse or for other medic o-leg al indic ation s. Metho dolog y: Polym erase Chain React ion (PCR) on the Toño Martina 8800 instr ument Not Available [address], [address], 06/18/2024 11:40:04 06/14/20 24 06/15/2024 RPR REFLE X TITRE AND TPPA RPR NON-RE ACTIVE non-re active normal Not Available [facility] [address] [place], [address], 06/18/2024 11:40:06 06/14/20 24 06/15/2024 HIV-1 /HIV- 2 AG/AB COMBO W/REF LEXES HIV-1/HIV-2 Ag/abs interpretati on NONREA CTIVE nonrea ctive normal Not Available [facility] [address] [place], [address], 06/18/2024 11:40:07 06/14/20 24 06/15/2024 HIV-1 /HIV- 2 AG/AB COMBO W/REF LEXES HIV-1 P24 Ag NONREA CTIVE nonrea ctive normal Not Available [facility] [address] [place], [address], 06/18/2024 11:40:07 06/14/20 24 06/15/2024 HIV-1 /HIV- 2 AG/AB COMBO W/REF LEXES HIV-1/HIV-2 abs NONREA CTIVE nonrea ctive normal Not Available [facility] [address] [place], [address], 06/18/2024 11:40:07 06/14/20 24 06/15/2024 HIV-1 /HIV- 2 AG/AB COMBO W/REF LEXES HIV interpretati on normal Negat rose for HIV-1 antig en and HIV-1 /HIV- 2 antib odies . No labor atory evide nce of HIV infec tion. Does not exclu de the possi bilit y of expos ure to or infec tion with HIV-1 and/o r HIV-2 that are below the limit of detec tion of this assay . Not Available [facility] [address] [place], [address], 06/18/2024 11:40:07 06/14/20 24 06/15/2024 HEPAT ITIS C AB RFLX HCV RNA QUANT hepatitis C antibody *POSIT ROSE negati ve abnormal Not Available [facility] [address] [place], [address], 06/18/2024 11:40:08 06/14/20 24 06/15/2024 HEPAT ITIS C AB RFLX HCV RNA QUANT HCV signal to cutoff ratio 134 normal HCV cutof f-ind ex above 150 is usual ly predi ctive of virem ia in >95% of patie nts Not Available [facility] [address] [place], [address], 06/18/2024 11:40:08 06/14/20 24 06/18/2024 HCV PCR QUANT ITATI VE HCV PCR quant NOT DETECT ED IU/mL normal Not Available [facility] [address] [place], [address], 06/18/2024 11:40:09 06/14/20 24 06/18/2024 HCV PCR QUANT ITATI VE HCV viral log NOT DETECT ED log_I U/mL normal Not Available [facility] [address] [place], [address], 06/18/2024 11:40:09 06/14/20 24 06/18/2024 HCV PCR QUANT ITATI VE HCV RNA interpretati on NOT DETECT ED normal Range of quant itati on is 15-10 0,000 ,000 IU/mL , (1.17 6-8.0 00 log IU/mL ). Sampl es with HCV RNA detec alessia below the limit of quant itati on are repor alessia as <15 IU/mL . Assay metho dolog y is polym erase chain react ion (PCR) using the Toño Martina 6800/ 8800 syste m. The expec alessia resul t is NOT DETEC ALESSIA. Not Available [address], [address], 06/18/2024 11:40:09 06/14/20 24 06/15/2024 CHLAM YDIA AND GC, AMPLI FIED, URINE chlamydia trachomatis, amp,ur NEGATI VE negati ve normal This assay is not inten ded for the evalu ation of suspe cted sexua l abuse or for other medic o-leg al indic ation s. Metho dolog y: Polym erase Chain React ion (PCR) on the Toño Martina 8800 instr ument Not Available [address], [address], 06/18/2024 11:40:10 06/14/20 24 06/15/2024 CHLAM YDIA AND GC, AMPLI FIED, URINE N.gonorrhoea e,amplified, ur NEGATI VE negati ve normal This assay is not inten ded for the evalu ation of suspe cted sexua l abuse or for other medic o-leg al indic ation s. Metho dolog y: Polym erase Chain React ion (PCR) on the Toño Martina 8800 instr ument Not Available [facility] [address] [place], [address], 06/18/2024 11:40:10 06/14/20 24 06/15/2024 PSA SCRN, RFX PSA-F REE/% FREE PSA (toño eclia) 0.806 NG/mL 0-4.00 normal Not Available [facility] [address] [place], [address], 06/18/2024 11:40:11 06/14/20 24 06/14/2024 gluco se, finge rstic k, blood adult fasting 55 mg/dL 70-110 Not Available [facility] [address], [address], 06/14/2024 14:17:58 06/14/20 24 06/14/2024 gluco se, finge rstic k, blood adult non-fasting mg/dL 70-200 Not Available [facility] [address], [address], 06/14/2024 14:17:58 07/12/20 24 07/12/2024 gluco se, finge rstic k, blood adult fasting mg/dL 70-110 Not Available [facility] [address], [address], 07/12/2024 11:43:06 07/12/20 24 07/12/2024 gluco se, finge rstic k, blood adult non-fasting 84 mg/dL 70-200 Not Available [facility] [address], [address], 07/12/2024 11:43:06 10/06/01 2408/19/2024 gluco se, finge rstic k, blood adult fasting mg/dL 70-110 Not Available [facility] @ [address], [address], 08/16/2024 11:43:01 08/19/2008/19/2024 gluco se, finge rstic k, blood adult non-fasting 267 mg/dL 70-200 Not Available [facility] @ [address], [address], 08/16/2024 11:43:01 06/14/2006/17/2024 elect rocar diogr am No observ ation record ed. nexis [facility] [address], [address], 06/17/2024 09:30:12 06/14/20 elect rocar diogr am No observ ation record ed. Not Available 2023 10:14:52 08/05/2008/23/2019 colon oscop y scree murphy (PROC ) No observ ation record ed. Not Available 2023 09:03:46 08/19/2008/22/2019 colon oscop y proce dure (PROC ) No observ ation record ed. [email or web address] Not Available 08/19 15:43:43 Result Notes None recorded. Problems Name Problem SNOMED Code Status Onset Date Resolution Date Notes Provider Name and Address Organization Details Recorded Time Uncontrolled type 2 diabetes mellitus 960646945 Active 2017 LAZARO PATRICK [address], [address], [facility] 8 15:25:40 Benign essential hypertension 0291704 Active 2017 LAZARO PATRICK [address], [address], [facility] 8 15:25:41 Hyperlipidemia 11747840 Active 2017 LAZARO PATRICK, [facility] [address] [place], [address], [facility] 8 15:25:42 Low back pain 153884588 Active 2017 LAZARO PATRICK, [facility] [address] [place] [address], [phone], [facility] 8 15:25:45 Hypothyroidism 79775033 Active 2017 LAZARO PATRICK, [facility] [address] [place], [address], [facility] 8 15:26:43 Mild intermittent asthma 440545456 Active 2017 LAZARO PATRICK, [facility] [address] [place] [address], [phone], [facility] 8 15:26:59 Problem Notes None recorded. Procedures Surgical History Date Name Laterality Status Provider Name and Address Organization Details Recorded Time 4 Nail Debridement completed JOSE DAVID HOPPER DPM [address] [place] [address], [phone], [facility] 08/19/2024 15:46:18 4 Routine Foot Care completed JOSE DAVID HOPPER DPM [address] [place] [address], [address], [facility] 08/19/2024 15:46:28 8 Nail Debridement completed JOSE DAVID HOPPER DPM [address] [place] [address], [phone], [facility] 11/12/2018 12:53:03 Imaging Results Imaging Date Name Status LastModified by Organization Details LastModified Time 06/17/2024 electrocardiogram completed nexis [facility] [address] [place], [address], 06/17/2024 09:30:12 06/14/2024 electrocardiogram completed Informa tion not available 06/17/2024 10:14:52 08/23/2019 colonoscopy screening (PROC) completed Information not available 08/06/2024 09:03:46 08/22/2019 colonoscopy procedure (PROC) completed [email or web address] Information not available 08/19/2024 15:43:43 Procedure Notes None recorded. Medical Equipment None Reported. Allergies No known drug allergies Medications Name Sig Start Date Stop Date Status Note LastModified by Organization Details LastModified Time pro comfort mis 31g 04/18 completed Not Available Not Available Not Available ultra-care alcohol prep pads 70 % pads active Not Available Not Available No t Available pen needles mis 31gx1/4 04/18 completed Not Available Not Available Not Available humalog mix inj 75/25kwp 04/18 completed Not Available Not Available Not Available pro comfort mis lancets 04/18 completed Not Available Not Available Not Available arnuity ellipta 100 mcg/act aepb active Not Available Not Available Not Available lidocaine 5 % ptch active Not Available Not Available Not Available nortriptyli ne hcl 25 mg caps active Not Available Not Available Not Available easy comfort mis 30g 04/18 completed Not Available Not Available Not Available pregabalin 100 mg caps 04/18 completed Not Available Not Available Not Available lancets mis 30g 04/18 completed Not Available Not Available Not Available albuterol sulfate hfa 108 mcg/act aers active Not Available Not Available Not Available ultra-care lancets 30g misc active Not Available Not Available Not Available alcohol pads 70 % pads active Not Available Not Available Not Available flovent hfa 110 mcg/act aero 04/18 completed Not Available Not Available Not Available pen needles mis 32gx1/4 active Not Available Not Available Not Available proair hfa 108 mcg/act aers active Not Available Not Available Not Available easy comfort mis 31gx1/4 active Not Available Not Available Not Available pen needles mis 33gx5/32 04/18 completed Not Available Not Available Not Available cyclobenzap rine 10 mg tablet active Not Available Not Available Not Available latanoprost 0.005 % eye drops active Not Available Not Available Not Available silver sulfadiazin e 1 % topical cream 01/25 completed Not Available Not Available Not Available metformin 500 mg tablet Take 1 tablet twice a day by oral route. 2018 active Not Available Not Available Not Avai lable gabapentin 600 mg tablet 01/25 completed Not Available Not Available Not Available atorvastati n 20 mg tablet Take 1 tablet every day by oral route. 01/25 completed Not Available Not Available Not Available albuterol sulfate 2.5 mg/3 mL (0.083 %) solution for nebulizatio n Inhale 3 mL 3 times a day by nebulizat ion route. active Not Available Not Available No t Available ammonium lactate 12 % lotion APPLY TO THE FEET TWICE A DAY, MORNING AND EVENING. AVOID LEAVING LOTION IN BETWEEN THE TOES active Not Available Not Available No t Available atorvastati n 10 mg tablet TAKE ONE TABLET BY MOUTH DAILY active Not Available Not Available No t Available Stool Softener 100 mg capsule Take 1 capsule every day by oral route. active Not Available Not Available No t Available ofloxacin 0.3 % eye drops active Not Available Not Available Not Available hydrocodone 5 mg-acetamin ophen 325 mg tablet 04/18 completed Not Available Not Available Not Available enalapril maleate 20 mg tablet 01/25 completed Not Available Not Available Not Available enalapril maleate 2.5 mg tablet Take 1 tablet every day by oral route. 01/25 completed Not Available Not Available Not Available gabapentin 400 mg capsule Take 1 capsule every day by oral route at bedtime. active Not Available Not Available No t Available oxiconazole 1 % topical cream active Not Available Not Available Not Available lidocaine HCl 2 % mucosal jelly 04/18 completed Not Available Not Available Not Available ketorolac 0.5 % eye drops active Not Available Not Available Not Available nortriptyli ne 25 mg capsule 04/18 completed Not Available Not Available Not Available ciclopirox 8 % topical solution 04/18 completed Not Available Not Available Not Available levothyroxi ne 100 mcg tablet TAKE ONE TABLET BY MOUTH DAILY active Not Available Not Available No t Available prednisolon e acetate 1 % eye drops,suspe nsion active Not Available Not Available Not Available gabapentin 800 mg tablet 04/18 completed Not Available Not Available Not Available baclofen 10 mg tablet 04/18 completed Not Available Not Available Not Available amlodipine 10 mg tablet Take 1 tablet every day by oral route. active Not Available Not Available No t Available cephalexin 500 mg capsule 01/25 completed Not Available Not Available Not Available nortriptyli ne 10 mg capsule 01/25 completed Not Available Not Available Not Available triamcinolo ne acetonide 0.1 % topical ointment APPLY A THIN LAYER TO THE AFFECTED AREA(S) BY TOPICAL ROUTE 2 TIMES PER DAY active Not Available Not Available No t Available ranitidine 150 mg tablet 04/18 completed Not Available Not Available Not Available naproxen 500 mg tablet,magaly yed release 04/18 completed Not Available Not Available Not Available lidocaine 5 % topical patch 04/18 completed Not Available Not Available Not Available telmisartan 80 mg tablet active Not Available Not Available Not Available ibuprofen 400 mg tablet 04/18 completed Not Available Not Available Not Available telmisartan 80 mg-hydrochl orothiazide 12.5 mg tablet 04/18 completed Not Available Not Available Not Available pravastatin 20 mg tablet Take 1 tablet every day by oral route. 04/18 completed Not Available Not Available Not Available gabapentin 100 mg capsule active Not Available Not Available Not Available ibuprofen 600 mg tablet 01/25 completed Not Available Not Available Not Available albuterol sulfate HFA 90 mcg/actuati on aerosol inhaler Inhale 2 puffs every 4-6 hours by inhalatio n route. active Not Available Not Available No t Available Vitamin D2 1,250 mcg (50,000 unit) capsule Take 1 capsule every week by oral route. active Not Available Not Available No t Available clotrimazol e 1 % topical cream 04/18 completed Not Available Not Available Not Available camphor (bulk) crystals 04/18 completed Not Available Not Available Not Available naproxen 500 mg tablet active Not Available Not Available Not Available levothyroxi ne 112 mcg tablet Take 1 tablet every day by oral route. active Not Available Not Available No t Available Tylenol Extra Strength 500 mg tablet Take 2 tablets every 12 hours by oral route as needed. 2024 active Not Available Not Available Not Avai lable Novolog Mix 70-30 FlexPen U-100 Insulin 100 unit/mL subcutaneou s pen INJECT 43 UNITS IN AM AND 40 UNITS IN THE PM active Not Available Not Available No t Available Novolog Mix 70-30 U-100 Insulin 100 unit/mL subcutaneou s solution INJECT 43 UNITS in AM and 40 units in the PM for 30 days 2024 active Not Available Not Available Not Avai lable lidocaine (bulk) powder 04/18 completed Not Available Not Available Not Available Alcohol Prep Pads APPLY 1 PAD(S) TWICE A DAY BY TOPICAL ROUTE. active Not Available Not Available No t Available BD Ultra-Fine Mini Pen Needle 31 gauge x 3/16 USE TO INJECT INSULIN UNDER THE SKIN THREE TIMES A DAY active Not Available Not Available No t Available Flovent HFA 44 mcg/actuati on aerosol inhaler active Not Available Not Available Not Available Flovent HFA 110 mcg/actuati on aerosol inhaler active Not Available Not Available Not Available Asmanex Twisthaler 220 mcg/actuati on(60 doses) breath activated inhalr 01/25 completed Not Available Not Available Not Available pregabalin 75 mg capsule 04/18 completed Not Available Not Available Not Available pregabalin 100 mg capsule active Not Available Not Available Not Available Lyrica 50 mg capsule active Not Available Not Available N ot Available chlorhexidi ne gluconate 0.12 % mouthwash 04/18 completed Not Available Not Available Not Available losartan 100 mg-hydrochl orothiazide 12.5 mg tablet TAKE ONE TABLET BY MOUTH DAILY active Not Available Not Available No t Available Alphagan P 0.1 % eye drops active Not Available Not Available Not Available BD Ultra-Fine Short Pen Needle 31 gauge x 5/16 DIRECTED active Not Available Not Available No t Available OneTouch UltraMini kit 01/25 completed Not Available Not Available Not Available Symbicort 160 mcg-4.5 mcg/actuati on HFA aerosol inhaler Inhale 2 puffs twice a day by inhalatio n route. 2023 active Not Available Not Available Not Avai lable FeroSul 325 mg (65 mg iron) tablet Take 1 tablet every day by oral route. 04/18 completed Not Available Not Available Not Available Humalog Mix 75-25 KwikPen U-100 insulin 100 unit/mL subcutaneou s pen INJECT 50 UNITS SUBCUTANE OUSLY TWICE A DAY . active Not Available Not Available No t Available GaviLyte-G 236 gram-22.74 gram-6.74 gram-5.86 gram oral solution 04/18 completed Not Available Not Available Not Available OneTouch Dana Lancets 33 gauge 04/18 completed Not Available Not Available Not Available naftifine 2 % topical cream active Not Available Not Available Not Available Contour Next Test Strips Take 1 strip twice a day by miscell. route. active Not Available Not Available No t Available Contour Next EZ Meter active Not Available Not Available Not Available TRUEplus Lancets 30 gauge USE TO CHECK YOUR BLOOD SUGAR TWICE A DAY active Not Available Not Available No t Available Comfort EZ Pen [place] 33 gauge x 3/16 USE TO INJECT INSULIN UNDER THE SKIN THREE TIMES A DAY active Not Available Not Available No t Available Jublia 10 % topical solution with applicator active Not Available Not Available N ot Available Easy Comfort Pen [place] 32 gauge x 5/32 DIRECTED DURING INSULIN ADMINISTR ATION THREE TIMES A DAY 2019 active Not Available Not Available Not Avai lable tavaborole 5 % topical solution with applicator active Not Available Not Available N ot Available Asmanex HFA 100 mcg/actuati on aerosol inhaler 01/25 completed Not Available Not Available Not Available Arnuity Ellipta 100 mcg/actuati on powder for inhalation INHALE ONE PUFF BY MOUTH DAILY active Not Available Not Available No t Available Easy Comfort Pen [place] 31 gauge x 1/4 DIRECTED active Not Available Not Available No t Available Breo Ellipta 200 mcg-25 mcg/dose powder for inhalation Inhale 1 puff every day by inhalatio n route. active Not Available Not Available No t Available Epclusa 400 mg-100 mg tablet 01/25 completed Not Available Not Available Not Available BD Ultra-Fine Micro Pen Needle 32 gauge x 1/4 active Not Available Not Available Not Available OneTouch Ultra Blue Test Strip USE TO CHECK YOUR BLOOD SUGAR TWICE A DAY 2019 active Not Available Not Available Not Avai lable Flucelvax Quad 9585-0330 (PF) 60 mcg (15 mcg x 4)/0.5 mL IM syringe 01/25 completed Not Available Not Available Not Available Lokelma 10 gram oral powder packet Take 1 packet every day by oral route for 30 days. active Not Available Not Available No t Available Ultracare Pen Needle 33 gauge x 5/32 USE TO INJECT INSULIN TWICE A DAY . active Not Available Not Available No t Available Wixela Inhub 250 mcg-50 mcg/dose powder for inhalation active Not Available Not Available N ot Available Ozempic 1 mg/dose (4 mg/3 mL) subcutaneou s pen injector Inject 1 mg every week by subcutane ous route. active Not Available Not Available No t Available Vitals Date Recorded Respiratory rate Body weight Oxygen saturation Oxygen saturation in Arterial blood by Pulse oximetry Heart rate Body temperature Body mass index (BMI) Body height Systolic blood pressure Diastolic blood pressure Systolic blood pressure Diastolic blood pressure Provider Name and Address Organization Details Last Updated DateTime 4 16 /min 59125.4 7 g 97 % 97 % 83 /min 97.8 [degF] 33.3 kg/m2 165.1 cm 155 mm[Hg] 78 mm[Hg] 167 mm[Hg] 76 mm[Hg] [facility] 4 14:13:33 Date Recorded Systolic blood pressure Diastolic blood pressure Provider Name and Address Organization Details Last Updated DateTime 06/14/2024 136 mm[Hg] 70 mm[Hg] Daisy Santoyo MD [address] [place] [address], [phone] 06/14/2024 15:13:17 Date Recorded Body height Respiratory rate Body mass index (BMI) Body weight Heart rate Body temperature Oxygen saturation Oxygen saturation in Arterial blood by Pulse oximetry Systolic blood pressure Diastolic blood pressure Systolic blood pressure Diastolic blood pressure Provider Name and Address Organization Details Last Updated DateTime 4 165.1 cm 16 /min 33.3 kg/m2 33680.4 7 g 86 /min 98.1 [degF] 96 % 96 % 147 mm[Hg] 72 mm[Hg] 130 mm[Hg] 66 mm[Hg] Jillian [facility] 4 11:39:05 Date Recorded Body height Respiratory rate Heart rate Body temperature Oxygen saturation Oxygen saturation in Arterial blood by Pulse oximetry Body mass index (BMI) Body weight Systolic blood pressure Diastolic blood pressure Provider Name and Address Organization Details Last Updated DateTime 4 165.1 cm 17 /min 81 /min 98.4 [degF] 93 % 93 % 31.1 kg/m2 01188.3 4 g 130 mm[Hg] 99 mm[Hg] Teo Hernandez [facility] 4 14:59:47 Date Recorded Body height Respiratory rate Body temperature Body mass index (BMI) Body weight Heart rate Systolic blood pressure Diastolic blood pressure Provider Name and Address Organization Details Last Updated DateTime 9 165.1 cm 15 /min 98.2 [degF] 29.1 kg/m2 12773.6 6 g 83 /min 129 mm[Hg] 72 mm[Hg] Niesha smith [facility] 9 11:21:27 Date Recorded Body height Respiratory rate Body mass index (BMI) Body weight Body temperature Oxygen saturation Oxygen saturation in Arterial blood by Pulse oximetry Heart rate Provider Name and Address Organization Details Last Updated DateTime 9 165.1 cm 14 /min 27.5 kg/m2 26537.7 4 g 98.7 [degF] 100 % 100 % 86 /min Gaye Marquez [facility] 9 16:11:13 Social History Question Answer Notes LastModified by Organizat ion Details LastModified Time Tobacco Smoking Status Current Some Day Smoker now 2 a day Florencia Mancera [facility] 03[place]08[place] 14:12:39 What Is Your Level Of Alcohol Consumption? None Information not available 10/30/2018 What Is Your Level Of Caffeine Consumption? Heavy Information not available 10/30/2018 How Much Tobacco Do You Chew? None Information not available 10/30/2018 Are You Currently Employed? No Information not available 10/30/2018 What Type Of Diet Are You Following? REGULAR Information not available 10/30/2018 Education 12 Information no t available 10/30/2018 Are There Any Guns Present In Your Home? No Information not available 10/30/2018 Hard Of Hearing Or Deaf In One Or Both Ears? No Information not available 10/30/2018 Legally Blind In One Or Both Eyes? No Information no t available 10/30/2018 Live Alone Or With Others? With Others Information not available 10/30/2018 Have You Recently Been Discharged From The Hospital Or Emergency Room? No Information not available 10/30/2018 Discharge Summary Obtained? No Information not available 10/30/2018 Discharge Summary Requested? No Information not available 10/30/2018 HIV Consent Opt-Out Information n ot available 10/30/2018 Alcohol Use? Denied Information not available 10/30/2018 Tobacco Use? Denied [email or web address] Information not available 03/08/2019 Illicit Drugs? Denied Informatio n not available 10/30/2018 Heterosexual Yes [email or web address] Information not available 03/14/2019 What Was The Date Of Your Most Recent Tobacco Screening? 08/19/2024 [email or web address] Information not available 08/19/2024 How Many Children Do You Have? 2 Information not available 10/30/2018 Performs Monthly Self-breast Exam? No Information no t available 10/30/2018 Seat Belts Used Routinely Yes Information not available 10/30/2018 Are You Sexually Active? No Information not available 10/30/2018 Smoke Alarm In Home Yes [email or web address] Information not available 03/08/2019 At What Age Did You Start Smoking Tobacco? 34 [email or web address] Information not available 03/14/2019 Are You Passively Exposed To Smoke? No Information no t available 10/30/2018 How Much Tobacco Do You Smoke? 0.25 PPD [email or web address] Information not available 03/14/2019 General Stress Level Low Information not available 10/30/2018 Do You Use Sunscreen Routinely? Yes Information not available 10/30/2018 How Many Years Have You Smoked Tobacco? 26 [email or web address] Information not available 03/14/2019 Sex: Male Functional Status Question Answer Note LastModified by Organization D etails LastModified Time Are you able to care for yourself? Yes Information n ot available 10/30/2018 What is your exercise level? None Information not available 10/30/2018 Mental Status None recorded. Family History Relationship Description Onset Age of this Age Resolved Age Notes LastModified by Organization Details LastModified Time Mother Diabetes mellitus nexis Not available 2017 15:18:10 Medical History Condition Response Coronary Artery Disease N Gout N Colon Cancer N Kidney Stones N Hyperthyroidism N Hypothyroidism N Depression N COPD N Osteoporosis/Osteopenia N Diverticulitis/Diverticulosis N Colon Polyps N Anxiety Disorder N Diabetes Y Bleeding Disorder N Arthritis N Seizures/Epilepsy N Tuberculosis N Hyperlipidemia N Cancer N Stroke N Asthma N Sleep Apnea N GERD/Reflux N Hepatitis N Liver Disease N Cirrhosis N Heart Disease N Hypertension Y Kidney Disease N Immunizations Vaccine Type Date Status Note Provider Nam e and Address Organization Details Recorded Time Influenza, split virus, quadrivalent, preservative 11/27/19 19 completed Not Available formerly [facility] 12/14/2019 02:18:30 Influenza, split virus, quadrivalent, preservative 08/06/20 18 [facility] 12/21/2018 09:14:57 Influenza, split virus, quadrivalent, preservative 07/27/20 17 completed [facility]e [facility] 12/21/2018 09:14:57 Influenza, split virus, quadrivalent, PF 10/30/20 18 cancelled product out of stock Not Available formerly [facility] 11/30/2019 02:51:19 Tdap 11/27/19 19 completed Not Available formerly [facility] 11/30/2019 02:51:22 Past Encounters Encounter ID Performer Location Encounter Start Date Encounter Closed Date Diagnosis/Indication Diagnosis SNOMED-CT Code Diagnosis ICD10 Code Diagnosis Note [id number] WOOD RODRIGUEZ BMS @ [address] [address] 10/30/2018 15:06:21 10/31/2018 14:08:07 Overweight 564961946 E66.3 Body mass index 25-29 - overweight 108784576 Z68.29 Dietary ma nagement surveillance 799597545 Z71.3 Uncontroll ed type 2 diabetes mellitus 747824932 E11.65 med dosing reviewed. annual eye and foot exams reviewed. lifestyle mods reviewed. f/u in 2 weeks to review lab work. Will not change any meds at this time. Benign ess ential hypertension 3639782 I10 continue on meds. low salt diet. f/u after lab work. Hyperlipidemia 72947530 E78.5 continue on med. lifestyle mods reviewed. f/u after lab work. Low back pain 348040834 M54.5 scheduled with pain mgt. Hypothyroidism 33902011 E03.9 continue on med. follow up after lab work. Mild inter mittent asthma 090420845 J45.20 avoid triggers. med dosing and side effects reviewed. RTC if albuterol usage increases. Screening for malignant neoplasm of colon 323595631 Z12.11 Active or passive immunization 840000972 Z23 Adult heal th examination 024165588 Z00.00 annual cpe, dental 2 times per year. f/u in 2 weeks to review results. [id number] WIL SIERRA @ [address] [address] 11/12/2018 11:49:22 11/14/2018 13:44:57 Diabetes mellitus 34205409 E11.9 Dry skin 64007384 L85.3 Onychomycosis 460148328 B35.1 [id number] WOOD RODRIGUEZ BMS @ [address] [address] 11/27/2018 16:49:36 11/28/2018 10:55:27 Tobacco use cessation education 083474275 Z71.6 Overweight 955260297 E66 .3 Body mass index 25-29 - overweight 530274828 Z68.29 Dietary ma nagement surveillance 290677526 Z71.3 Uncontroll ed type 2 diabetes mellitus 089077570 E11.65 med dosing reviewed. annual eye and foot exams reviewed. lifestyle mods reviewed. f/u in 3 months or prn. Benign ess ential hypertension 6108933 I10 continue on meds. low salt diet. continue to monitor. Hyperlipidemia 51406588 E78.5 continue on med. lifestyle mods reviewed. reviewed low fat diet. Hypothyroidism 12958265 E03.9 continue on med. continue to monitor. Mild inter mittent asthma 085309814 J45.20 avoid triggers. med dosing and side effects reviewed. RTC if albuterol usage increases. Low back pain 976562198 M54.5 scheduled with pain mgt. Interested in meeting with regarding transporta tion. Screening for malignant neoplasm of colon 474417344 Z12.11 scheduled with GI for colonoscop y. Active or passive immunization 135922992 Z23 out of flu immunizati on Microscopic hematuria 19 7902178 R31.21 RBC 3. Reviewed labs. reviewed importance of f/u in 2 weeks to review results. [id number] WOOD GARCÍA BMS @ [address] [address] 12/21/2018 08:54:11 12/24/2018 15:32:37 Overweight 956562021 E66.3 Body mass index 25-29 - overweight 381566645 Z68.29 Encouraged to lose 20 lbs, increase fruits and veggies, brisk walking and increasing water intake Dietary ma jose surveillance 593681659 Z71.3 well balanced diet and avoid processed foods Hypertriglyceridemia 302 686754 E78.1 pravastati n 20mg daily ordered.,A low-fat diet ,cholester ol <200 mg/day, increased physical activity . retest in 3 months. Hypothyroidism 72431286 E03.9 levothyrox ine increased to 112mcg. daily Hepatitis C antibody detected 845409309 Z86.19 stable Microalbuminuria 4933229 06 R80.9 RX meds. nephrology referral Microscopic hematuria 19 7271033 R31.21 labs ordered Anemia 389760497 D64.9 RX meds. Informed of the importance of PO supplement ,food rich in Iron and absorption is enhanced by Vit C&Meat & inhibited by calcium, fiber, tea, coffe and wine. Type 2 jared betes mellitus without complication 206173930 E11.9 continue current med along with ADA dash diet and exercise and rto in 3 mth Screening for malignant neoplasm of colon 061839555 Z12.11 appt scheduled for 03/08/19 Screening for malignant neoplasm of prostate 958832438 Z12.5 labs ordered. Benign ess ential hypertension 7042017 I10 cont medication s as rx, wt reduction, exercise 200 min / wk, avoid salt, decrease stessors. F/u in 3 months. Depression screening 171 898281 Z13.31 screening reviewed. [id number] KECIA CHARLES, CARMEN BMS @ [address] [address] 01/02/2019 11:04:19 01/03/2019 10:28:32 Well controlled type 2 diabetes mellitus 627187554 E11.9 no DFe done today. patient is 1 week CE post-op OD with corneal endothelia l folds. will refer back to cataract surgeon Descemet's membrane fold 552992436 H18.321 s/p cataract extraction . slightly elevated IOP. return to Cataract surgeon for evaluation and treatment and then will return to DM exam. [id number] WOOD GARCÍA BMS @ [address] [address] 01/25/2019 09:53:55 01/29/2019 15:09:42 Overweight 117156055 E66.3 Body mass index 25-29 - overweight 631879090 Z68.29 Encouraged to lose 20 lbs, increase fruits and veggies, brisk walking and increasing water intake Dietary ma nagement surveillance 556939786 Z71.3 well balanced diet and avoid processed foods Hypothyroidism 35335393 E03.9 I discussed thyroid disease,th erapy and follow-up. The goal is to maintain TSH level between 0.5 and 2.5 mu/L and FT4 within normal range. Benign ess ential hypertension 0456395 I10 cont medication s as rx, wt reduction, exercise 200 min / wk, avoid salt, decrease stessors. Return as scheduled for lab results and bp check. Type 2 jared betes mellitus without complication 078180940 E11.9 continue current med along with ADA dash diet and exercise and Return as scheduled for lab results. Low back pain 337046473 M54.5 Patient advised to take medication as directed here. Patient advised to rest initially and then slowly increase activity level. Monitor changes in symptoms such as numbness, tingling or weakness in legs, changes in bowel or bladder habits or worsening back pain. Depression screening 171 083726 Z13.31 screening reviewed. [id number] MD CRIS SCHAFER-EDDIE @ [address] [address] 03/08/2019 13:59:58 03/12/2019 14:19:04 Body mass index 25-29 - overweight 722278429 Z68.25 Screening for malignant neoplasm of colon 752276428 Z12.11 [id number] BECKY Oconnor MD BMS-EDDIE @ [address] [address] 03/14/2019 10:40:19 03/18/2019 11:34:23 Overweight 939646899 E66.3 weight reduction Body mass index 25-29 - overweight 193028238 Z68.29 diet exercice Dietary ma nagement surveillance 342916696 Z71.3 nutrition referl Disorder d ue to type 2 diabetes mellitus 285274471 E11.8 chronic ,doing well on losartanme ds and diet unchangedr eenforce adherenceo rder labsf/u after Chronic re nal impairment 652395575 N18.9 etiology to be determinat edorder labs and sono ,avoid nssid Benign ess ential hypertension 0294991 I10 stableavoi d nsaidrenfo rce meds and diet adherence Mixed hyperlipidemia 267 295928 E78.2 chroniccar e unchangedr epeat labs Microalbuminuria 0232452 06 R80.9 stop naproxenav oid all nsaid [id number] MOOKIE KRAFT, WOOD BMS @ [address] [address] 03/29/2019 15:59:35 04/02/2019 11:50:46 Overweight 786538920 E66.3 Body mass index 25-29 - overweight 326522270 Z68.27 Encouraged to lose 20 lbs, increase fruits and veggies, and increase water intake Dietary ma nagement surveillance 362373049 Z71.3 well balanced diet and avoid processed foods Anemia 102317791 D64.9 RX meds. Informed of the importance of PO supplement ,food rich in Iron and absorption is enhanced by Vit C&Meat & inhibited by calcium, fiber, tea, coffe and wine. labs ordered. Hypertriglyceridemia 302 473473 E78.1 continue pravastati n 20mg daily ordered.,A low-fat diet ,cholester ol <200 mg/day, increased physical activity . retest in 3 months. Vitamin D deficiency 347 48149 E55.9 Vitamin D supplement wkly , outdoor activities and sunlight exposure of the arms and legs for approx. 15 min 2/wk for about 5 to 30 minutes. Retest in 3 months. Type 2 jared betes mellitus without complication 468518237 E11.9 continue current med along with ADA dash diet and exercise Metforin 500mg bid ordered. Insulin discontinu ed. Benign ess ential hypertension 6733247 I10 cont medication s as rx, wt reduction, exercise 200 min / wk, avoid salt, decrease stessors. Return as scheduled for lab results and bp check. Hypothyroidism 04211504 E03.9 I discussed thyroid disease,th erapy and follow-up. The goal is to maintain TSH level between 0.5 and 2.5 mu/L and FT4 within normal range. Low back pain 800293762 M54.5 Patient advised to take medication as directed here. Patient advised to rest initially and then slowly increase activity level. Monitor changes in symptoms such as numbness, tingling or weakness in legs, changes in bowel or bladder habits or worsening back pain. Mild inter mittent asthma 692285168 J45.20 Advised to continue to use albuterol no more than q4h PRN, but call clinic for exacerbati on or if needing to use more than 2x/week or more than 2 nighttime awakenings per month. MDI and spacer use reviewed. Depression screening 171 602532 Z13.31 screening reviewed. [id number] MD CRIS Sung @ [address] [address] 06/14/2024 13:51:16 06/14/2024 16:27:23 Benign essential hypertension 1251238 I10 BP today is 136/70. Refills sent to the pharmacy Obesity 797907927 E66.9 Dietary ma nagement surveillance 403492405 Z71.3 Body mass index 30+ - obesity 147318541 Z68.33 Type 2 jared betes mellitus 12124770 E11.9 FS 55. Patient states he did not eat his lunch today and he is given oral glucose at the clinic Adult heal th examination 893580188 Z00.00 Venereal d isease screening 560060188 Z11.3 Chronic low back pain 27 1605711 M54.50 Patient requested pain medication for lower back pain Hyperlipidemia 81822860 E78.5 Refills sent to the pharmacy Hypothyroidism 13724424 E03.9 Refills sent to the pharmacy Mild persi stent asthma 894139137 J45.30 Lungs are clear on exam today. Patient states he use albuterol but he is using it more frequently the last few months more than 4 times a week. Will add Symbicort Screening for malignant neoplasm of colon 315312413 Z12.11 Patient states he had Colonoscop y at [facility] about 3 years ago and will obtain recors [id number] MD CRIS Sung @ [address] [address] 07/12/2024 11:23:03 07/12/2024 14:26:02 Obesity 126625792 E66.9 Patient is started on Ozempic to improve his body weight and BMI Dietary ma jose surveillance 870843170 Z71.3 Body mass index 30+ - obesity 259911497 Z68.33 Type 2 jared celestine mellitus 06481599 E11.9 FS 84. Blood test result from 06/14/24 shows HgA1C level of 7.1. Patient is advised to continue current treatment . ozempic is added to his current DM medication History of hepatitis C 6182853304 9101 Z86.19 Blood test result from 06/14/24 shows Hep C titer positive with undetectab le viral count. Patient states he was treated about 3 years ago Vitamin D deficiency 347 63405 E55.9 Blood test result from 06/14/24 shows 15.1 Benign ess ential hypertension 1715372 I10 BP today is 136/70. patient current medication is switched from Losartan/H CTZ to amlodipine 10 mg due to high serum Potassium and his high creatinine Hyperlipidemia 99608816 E78.5 Lipid panel from 06/14/24 reviewed and patient is advised to continue current treatment Hypothyroidism 06595242 E03.9 Blood test result from 06/14/24 shows High TSH and Normal Free T4. patient is advised to continue current synthroid dos and will recheck his TFT in 2 months time Mild persi stent asthma 284398899 J45.30 Lungs are clear on exam today. Patient states he use albuterol more often. will add symbicort to be taken twice a day and Albuterol nebulizer to be used as needed Chronic low back pain 27 4667916 M54.50 Patient requested pain medication for lower back pain Screening for malignant neoplasm of colon 537089900 Z12.11 Patient states he had Colonoscop y at [facility] about 3 years ago and will obtain records Pruritic rash 27839598 L 28.2 Patient complains of diffuse itchy skin lesions Chronic ki dney disease stage 4 566517667 N18.4 Blood test result from 06/14/24 shows BUN of 40 Creatinine of 3.6 and eGFR of 17 Hyperkalemia 61327105 E8 7.5 Blood test result from 06/14/24 shows Serum K of 5.7 [id number] WIL SIERRA-EDDIE @ [address] [address] 08/19/2024 14:49:30 08/19/2024 15:52:07 Obesity 432335134 E66.9 Dietary ma nagement surveillance 245731752 Z71.3 Type 2 jared betes mellitus without complication 228393472 E11.9 Onychomycosis 300340573 B35.1 Pain of to e of right foot 5768119118 32102 M79.674 Pain of to e of left foot 1787008467 22794 M79.675 Foot callus 064797090 L8 4 Fissure in skin of bilateral feet 268092797 R23.4 Goals Section Goal Description Status Start Date LastModified by Organization Details LastModified Time HTN self management - BP goal less than 140 / 90 PCP / Diagnoses: Daisy Santoyo MD / HTN. Problem list: PT problem list discussed and reviewed with PT. Medication Adherence: PT reports that he sometimes forgets to take his medications as prescribed by the medical provider. PT History: BP: 147 / 72 WT: 200lbs BMI: 33.3Social Enviornment Review: 69 y/o F with hx of HTN. PT discussed having no access to an at home blood pressure monitor, PT reports that he is unable to monitor or record his blood pressure. PT describes his plate size as medium mostly starch. PT discussed enjoying rice daily for lunch and or dinner. PT discussed rarely frying foods howeber he does enjoy chicken, beef, and or pork for lunch and dinner. PT reports that he does not always eat breakfast. PT discussed drinking soda occassionally , juice daily and three or more cups of water a day/ PT discussed minimal to no physical activity, PT reports smoking two cigarettes a day. Handouts reviewed / discussed: My plate method and portion control discussed. Importance of medication adherence discussed, smoking with HTN discussed, Using food labels to eat less sodium. cut the salt. Strengths: PT has decreased the amount of cigarettes that he smokes from 7-2 a day, on his own.Confidenc e level: 06/22.Expected Prognosis: HTN self management Goal not achieved [place] Information not available 07/17/2024 16:17:46 Health Concerns Section Related Observation LastModified by Organization Detai ls LastModified Time None Recorded Concern Status LastModified by Organization Details LastModified Time None Recorded Advance Directives Directive None Recorded Payers Encounter Date Sequence Insurance Name Policy Number Policy Rendon Covered Member ID Rendon Member ID Guarantor Name 03/14/2019 1 [facility]ICARE[facility] (MEDICARE) Robin Shukla [id number] Robin Shukla 03/14/2019 1 [place] Robin Loydado [id number] Robin Shukla 03/29/2019 1 [place] Rboin Shukla [id number] Robin Shukla 03/29/2019 1 [facility] [place] [facility] Shukla [id number] Robin Loydado 06/14/2024 1 [employer] (MEDICARE REPLACEMENT/AD VANTAGE - HMO) [id number] Robin Shukla [id number] Robin Loydado 07/12/2024 1 [employer] (MEDICARE REPLACEMENT/AD VANTAGE - HMO) [id number] Robin Shukla [id number] Robin Loydado 08/19/2024 1 [employer] (MEDICARE REPLACEMENT/AD VANTAGE - HMO) [id number] Robin Shukla [id number] Robin Loydado Notes Date Note Type Note Provider Name and Address Organization Details Recorded Time 03/14/2019 text/html first renal visi t of this 63 years old man seeking evaluation for microalbuminuria >30 egfr 71 to 83 ,a1c =7 on naproxen and there was previous usage of ibuprofenalready on losartanh/o dm for over 10 years with cataract , h/o neuropathy ,no stroke cad or chest painoccasional ankle edema ,and hesitency but no foaming or frosthing BECKY CHAUDHRY MD [address] [place] [address], [phone], [facility] 03/14/2019 15:49:35 03/29/2019 text/html Pt is here today for tests results . Tests results d/w the pt in details . Elevated bp of 164/83. Denies any headaches, chest pain or dizziness. WOOD GARCÍA [address] [place] [address], [phone], [facility] 03/31/2019 22:54:08 06/14/2024 text/html [facility].patient complains of lower back pain Daisy Santoyo MD [address] [place], [phone], [facility] [facility] 06/14/2024 16:49:27 07/12/2024 text/html Patient came for a F/U visit and blood test results. patient complains of itchy skin lesions Daisy Santoyo MD [address] [place] [address], [phone], [facility] 07/12/2024 14:55:55 08/19/2024 text/html Routine Foot CareReported bypatient.Location:[facility] Quality:walking; painful in shoes Severity:mild Alleviating Factors:limited weight bearing; taking off shoes Aggravating Factors:walking; weight bearing Previous Surgery:none Previous Treatment:none Diabetic patient present for a diabetic foot exam in which his last visit here was 2017. Patient has painful long nails and lesions JOSE DAVID HOPPER DPM [address] [place], [phone], [facility] 08/19/2024 15:49:00
--- NOTE | 2024-11-26 08:44 | ED_ITS ---
HPI - General Adult General Chief complaint: Fall Stated complaint: fall, head strike, diabetic Time Seen by Provider: 11/26/24 08:28 Source: patient Mode of arrival: ambulatory Limitations: no limitations History of Present Illness ED Provider: DR. Bolanos HPI narrative: A 69-year-old male history of insulin-dependent diabetes, appears to be poorly managed by the patient, patient has no PCP currently lost PCP was in [place] many years ago, patient declined having any kidney issue that he is aware off and he is not on dialysis came in after he sustained a syncopal episode the patient do not remember the details of the fall but report fall today with LOC and feeling dizzy, complaining of right facial pain from the fall, neck pain, bilateral chest wall pain. Patient declined any bleeding, no hematuria, no blood in the urine, not vomiting blood. No CP, no SOB. Related Data Previous Rx's ?Medication ?Instructions ?Recorded insulin aspar prot-insulin aspart 43 unit (0.43 mL) subcut QAM #15 mL 05/01/21 100 unit/mL (70-30) subcutaneous pen (Novolog Mix 70-30FlexPen U-100) Allergies Allergy/AdvReac Type Severity Reaction Status Date / Time No Known Allergies Allergy Verified 11/26/24 07:00 Review of Systems 2 Review of Systems: All other systems are reviewed and are negative Constitutional: Reports as per HPI and Reports no additional constitutional complaints Eyes: Reports as per HPI and Reports no additional eye complaints Reports system reviewed and no additional complaints, except as documented Cardiovascular: Reports as per HPI and Reports no additional cardiovascular complaints Respiratory: Reports as per HPI and Reports no additional respiratory complaints Gastrointestinal: Reports as per HPI and Reports no additional gastrointestinal complaints Genitourinary: Reports no additional female genitourinary complaints Musculoskeletal: Reports no additional musculoskeletal complaints Skin/Breast: Reports system reviewed and no additional complaints, except as docu Psychiatric: Reports no additional psychiatric complaints Endocrine: Reports no additional endocrine complaints Hematologic/Lymphatic: Reports no additional hematologic/lymphatic complaints Allergic/Immunologic: Reports no additional allergic/immunologic complaints Reports system reviewed and no additional complaints, except as documented and Reports Abnormal speech present [facility] Past Medical History Medical History Opiate dependence Diabetes HLD (hyperlipidemia) HTN (hypertension) Social History Social History Patient Tobacco Use Status: Former Tobacco user Substance Use Type: Former Substance User Advance Directives: No Advance Directives Information Provided: Yes Physical Exam ED Vital Signs: Vital Signs - 24 hr 11/26/24 06:58 11/26/24 09:38 11/26/24 09:38 Temperature 99.7 F Pulse Rate 93 83 88 Respiratory Rate 20 Blood Pressure 178/45 H 186/91 H 173/74 H Pulse Oximetry 98 Oxygen Delivery Method Room Air 11/26/24 09:38 11/26/24 09:39 11/26/24 10:03 Temperature 97.8 F Pulse Rate 89 89 87 Respiratory Rate 17 17 Blood Pressure 172/62 H 172/62 H 183/80 H Pulse Oximetry 99 99 Oxygen Delivery Method Room Air Room Air BMI result Body Mass Index 30.6 Vital signs have been reviewed and appear to be correct. Blood pressure elevated. Heart rate normal. Respiratory rate normal. Temperature normal. Oxygen saturation normal. Appearance: Alert. Oriented X3. No acute distress. Head: Normal external exam. Normocephalic. Atraumatic. No R[place] signs noted. No raccoon eyes noted Eyes: PERRLA. EOMI. Conjunctiva and sclera normal. Eyelids normal. ENT: TM's Normal. Pharynx normal. Uvula midline. Moist mucous membranes. No trismus noted. No drooling noted. No muffled voice noted. Neck: Normal inspection. Neck supple. FROM. No adenopathy. Thyroid Normal. No meningeal signs. No neck mass noted. CVS: Normal heart rate and rhythm. Heart sound normal. No murmurs noted. Pulses normal throughout. Respiratory: No respiratory distress. Painless inspiration. Breath sounds normal. No wheezes/rales/rhonchi noted. Chest nontender. No accessory muscle usage noted or decreased air movement noted. Abdomen: Soft and nontender. Bowel sounds normal in all 4 quadrants. No distention noted. No organomegaly noted. No visible injury noted. Back: No CVA tenderness. Full range of motion noted. Skin: Skin warm and dry. Normal skin color. Normal skin turgor. No rashes/lesions/lacerations noted. Extremities: No lower extremity edema. Extremities exhibit normal range of motion. Extremities nontender. Neuro: Oriented X 3. Cranial nerve exam: II-XII are grossly intact No motor deficit. No sensory deficit. Reflexes normal. Course Reevaluation(s) Reevaluation #1: A 69-year-old male with insulin-dependent diabetes came in after having a syncopal episode, patient found to be in PACO and severe anemia, patient declined any losing blood in the urine or from the rectum, declined using any anticoagulation, decline being on dialysis. Case discussed with Dr. Escalante for further renal evaluation. Will admit for further evaluation. Time: 10:31 Medical Decision Making Differential Diagnosis Differential Diagnoses: The differential diagnosis associated with the presentation includes (Syncope, intracranial bleed, cervical spine injury, facial fracture, ACS, dysrhythmia, severe anemia, electrolyte derangement, PACO) Admission/Observation Consideration of admission/observation: Escalation of care including admission/observation considered Consult Healthcare Provider Management of the patient was discussed with: Hospitalist (Dr. Dumont) and Tufting Machine Operator (Dr. Escalante ) Lab Data MDM Lab Attestation statement: I reviewed the patient's lab results. 11/26/24 07:13 11/26/24 07:13 Labs: Lab Results 11/26/24 11/26/24 11/26/24 Range/Units 07:02 07:13 08:58 WBC 10.5 (4.8-10.8) X10*3/uL RBC 2.89 L (4.60-5.80) X10*6/uL Hgb 8.5 L (14.0-18.0) g/dl Hct 25.4 L (42.0-52.0) % MCV 87.9 (80.0-98.0) fL MCH 29.4 (27.0-33.0) pg MCHC 33.5 (31.0-36.0) g/dl RDW 13.6 (11.0-16.0) % Plt Count 215 (160-400) X10*3/uL MPV 10.8 (9.4-12.4) fL Immature Gran % (Auto) 0.4 (0.0-0.4) % Neut % (Auto) 72.1 (45-73) % Lymph % (Auto) 17.3 L (20-40) % [place] % (Auto) 6.6 (2-11) % Eos % (Auto) 2.6 (0-4) % Baso % (Auto) 1.0 (0-2) % Lymph # (Auto) 1.8 (1.2-4.9) X10*3/uL [place] # (Auto) 0.7 (0.1-1.2) X10*3/uL Eos # (Auto) 0.3 (0.0-0.4) X10*3/uL Baso # (Auto) 0.1 (0.0-0.2) X10*3/uL Abs Immat Gran (auto) 0.04 H (0.00-0.03) X10*3/uL Absolute Neuts (auto) 7.6 (2.0-8.3) x10*3/uL Absolute Nucleated RBC 0.000 (0.0-0.012) X10*3/uL Nucleated RBC % (auto) 0.0 (0.0-0.2) /100WBC PT 12.6 H (10.9-12.4) SEC INR 1.1 (0.9-1.1) Sodium 140 (135-145) mmol/L Potassium 5.5 H (3.3-5.1) mmol/L Chloride 112 H (96-108) mmol/L Carbon Dioxide 21 L (22-29) mmol/L Anion Gap 13 (12-20) BUN 58 H (9-16) mg/dL Creatinine 4.49 H* (0.5-1.4) mg/dL Estim Creat Clear Calc 14.6 Estimated GFR 13 POC Glucose 106 (60-115) mg/dL Random Glucose 112 (60-115) mg/dL Calcium 8.6 D (8.4-10.2) mg/dL Total Bilirubin 0.3 (0.0-1.0) mg/dL AST 21 (5-37) U/L ALT 11 (0-40) U/L Alkaline Phosphatase 117 (39-117) U/L Troponin I High Sens 7.1 (<3.5-35.0) ng/L B-Natriuretic Peptide 131 H (<100) pg/mL Total Protein 7.2 (6.5-8.0) g/dL Albumin 4.0 (3.5-5.0) g/dL Urine Color Urine Appearance Urine pH (5.0-9.0) Ur Specific [place] (1.005-1.025) Urine Protein (Neg-Trace) mg/dL Urine Glucose (UA) (Negative) mg/dL Urine Ketones (Negative) mg/dL Urine Blood (Negative) Urine Nitrite (Negative) Ur Leukocyte Esterase (Negative) Urine RBC (0-2) /HPF Urine WBC (0-5) /HPF Ur Squamous Epith Cells (0-2) /HPF Urine Bacteria (None Seen) Hyaline Casts (0-2) /LPF Urine Opiates Screen (Not Detect) Ur Buprenorphine Scrn (Not Detect) ng/mL Ur Oxycodone Screen (Not Detect) ng/mL Urine Methadone Screen (Not Detect) ng/mL Urine Fentanyl Screen (Not Detect) Ur Barbiturates Screen (Not Detect) Ur Phencyclidine Scrn (Not Detect) Ur Amphetamines Screen (Not Detect) U Benzodiazepines Scrn (Not Detect) Urine Cocaine Screen (Not Detect) U Marijuana (THC) Screen (Not Detect) 11/26/24 Range/Units 08:59 WBC (4.8-10.8) X10*3/uL RBC (4.60-5.80) X10*6/uL Hgb (14.0-18.0) g/dl Hct (42.0-52.0) % MCV (80.0-98.0) fL MCH (27.0-33.0) pg MCHC (31.0-36.0) g/dl RDW (11.0-16.0) % Plt Count (160-400) X10*3/uL MPV (9.4-12.4) fL Immature Gran % (Auto) (0.0-0.4) % Neut % (Auto) (45-73) % Lymph % (Auto) (20-40) % [place] % (Auto) (2-11) % Eos % (Auto) (0-4) % Baso % (Auto) (0-2) % Lymph # (Auto) (1.2-4.9) X10*3/uL [place] # (Auto) (0.1-1.2) X10*3/uL Eos # (Auto) (0.0-0.4) X10*3/uL Baso # (Auto) (0.0-0.2) X10*3/uL Abs Immat Gran (auto) (0.00-0.03) X10*3/uL Absolute Neuts (auto) (2.0-8.3) x10*3/uL Absolute Nucleated RBC (0.0-0.012) X10*3/uL Nucleated RBC % (auto) (0.0-0.2) /100WBC PT (10.9-12.4) SEC INR (0.9-1.1) Sodium (135-145) mmol/L Potassium (3.3-5.1) mmol/L Chloride (96-108) mmol/L Carbon Dioxide (22-29) mmol/L Anion Gap (12-20) BUN (9-16) mg/dL Creatinine (0.5-1.4) mg/dL Estim Creat Clear Calc Estimated GFR POC Glucose (60-115) mg/dL Random Glucose (60-115) mg/dL Calcium (8.4-10.2) mg/dL Total Bilirubin (0.0-1.0) mg/dL AST (5-37) U/L ALT (0-40) U/L Alkaline Phosphatase (39-117) U/L Troponin I High Sens (<3.5-35.0) ng/L B-Natriuretic Peptide (<100) pg/mL Total Protein (6.5-8.0) g/dL Albumin (3.5-5.0) g/dL Urine Color Yellow Urine Appearance Clear Urine pH 5.5 (5.0-9.0) Ur Specific [place] 1.015 (1.005-1.025) Urine Protein 300 (3+) H (Neg-Trace) mg/dL Urine Glucose (UA) Negative (Negative) mg/dL Urine Ketones Negative (Negative) mg/dL Urine Blood Negative (Negative) Urine Nitrite Negative (Negative) Ur Leukocyte Esterase Negative (Negative) Urine RBC 0-2 (0-2) /HPF Urine WBC 0-5 (0-5) /HPF Ur Squamous Epith Cells 0-2 (0-2) /HPF Urine Bacteria None Seen (None Seen) Hyaline Casts 0-2 (0-2) /LPF Urine Opiates Screen Not Detected (Not Detect) Ur Buprenorphine Scrn Not Detected (Not Detect) ng/mL Ur Oxycodone Screen Not Detected (Not Detect) ng/mL Urine Methadone Screen Positive H (Not Detect) ng/mL Urine Fentanyl Screen Not Detected (Not Detect) Ur Barbiturates Screen Not Detected (Not Detect) Ur Phencyclidine Scrn Not Detected (Not Detect) Ur Amphetamines Screen Not Detected (Not Detect) U Benzodiazepines Scrn Not Detected (Not Detect) Urine Cocaine Screen Not Detected (Not Detect) U Marijuana (THC) Screen Not Detected (Not Detect) Independent Interpretation I performed an independent interpretation of an: Plain X-Ray (Chest: No acute rib fracture, lung field is clear.) and CT Scan (Head/face/cervical spine: No acute pathology.) Radiology Impression Discussion of test interpretation with radiology: I have reviewed the radiologist's reading. Discharge Plan Discharge Clinical Impression: Syncope, PACO (acute kidney injury) Patient Disposition: Admitted As Inpatient Print Language: Polish
--- NOTE | 2024-11-26 08:50 | ECG_ITS ---
Test Reason : elizabeth Blood Pressure : */* mmHG Vent. Rate : 84 BPM Atrial Rate : 84 BPM P-R Int : 168 ms QRS Dur : 74 ms QT Int : 342 ms P-R-T Axes : 25 35 39 degrees QTcB Int : 404 ms Normal sinus rhythm Anterior infarct , age undetermined Abnormal ECG No previous ECGs available Referred By: Marcello Bolanos Electronically Signed By: Haroon Kaur
[2024-11-26 09:09] LABS: Appearance Urine Clear; Color Urine Yellow; Glucose Urine UA Negative (Negative); Leukocyte Esterase Urine Negative (Negative); Nitrite Urine Negative (Negative); PH 5.5 (5.0-9.0); Specific Gravity - Urine 1.015 (1.005-1.025); UMIC TRIGGER UACC YES; Urine Blood Negative (Negative); Urine Ketones Negative (Negative); Urine Protein 300 (3+) mg/dL (Neg-Trace)
[2024-11-26 09:14] LABS: Bacteria Urine None Seen (None Seen); Hyaline Casts Urine 0-2 /LPF (0-2); RBC Urine 0-2 /HPF (0-2); Squamous Epithelial Cell Urine 0-2 /HPF (0-2); WBC Urine 0-5 /HPF (0-5)
[2024-11-26 09:14] LABS: INTERNATIONAL NORM RATIO 1.1 (0.9-1.1); Prothrombin Time 12.6 SEC (10.9-12.4)
[2024-11-26 09:19] LABS: Amphetamine Screen Urine Not Detected (Not Detect); Barbiturates, Urine Not Detected (Not Detect); Benzodiazepines Screen Urine Not Detected (Not Detect); Buprenorphine Scr Not Detected (Not Detect); Cannabinoid Screen Urine Not Detected (Not Detect); Cocaine Screen Urine Not Detected (Not Detect); Fentanyl, urine Not Detected (Not Detect); Methadone Screen, Urine Positive (Not Detect); Opiate Screen Urine Not Detected (Not Detect); Oxycodone Screen Urine Not Detected (Not Detect); Phencyclidine Screen Urine Not Detected (Not Detect)
[2024-11-26 09:29] LABS: B Type Natriuretic Peptide 131 pg/mL (<100); Troponin-I High Sensitivity 7.1 ng/L (<3.5-35.0)
--- NOTE | 2024-11-26 11:36 | PHA.MEDREC ---
Addendum entered by Hanna Nunes RPh 11/26/24 11:55: Reviewed by pharmacist Original Note: Pharmacy Consult ? Medication Reconciliation Pharmacy has completed the medication reconciliation. Spoke to patient to confirm med list. Patient had a 19 page med list with him dating back to 2020. Patient was able to confirm Novolog Mix 70-30 Flexpen is 43 units daily and 40 units at bedtime, Vitamin D2 is every Monday, patient doesn't remember if he took it last Monday. Called [facility] ([phone]) to get an updated med list and also called [facility] to get there updated med list. utilized claims and med list from both pharmacy to confirm med rec.
--- NOTE | 2024-11-26 12:44 | PM.IMHP ---
History of Present Illness Date of Service: 11/26/24 Chief Complaint: Passing out twice last week A 69-year-old male with a history of hypertension, diabetes mellitus, and hypothyroidism presents with syncope. He reports having two syncopal episodes last week but has difficulty describing the circumstances leading to these episodes. There was no head injury, but he did experience a loss of consciousness (LOC). He reports rib pain; however, X-ray findings are negative. Head CT, facial CT, and cervical spine CT are negative for acute injury. ECG shows anterior KS of undetermined age. Lab work reveals a creatinine level of 4, with the last known creatinine level of 1.4 in 2020. Review of Systems Review of Systems: Gen: no fever Resp: no sob, no cough CV: no chest, no ARECHIGA, no leg edema GI: No n/v, no abd pain Neuro: No confusion Yes all other systems are reviewed and are negative COUNT INCLUDES [facility] Medical History Opiate dependence Diabetes HLD (hyperlipidemia) HTN (hypertension) Social History Patient Tobacco Use Status: Former Tobacco user Smoked in Last 30 Days: No Use of substances other than those prescribed or required for medical reasons: No Substance Use Type: Former Substance User Any prior treatment program specific to substance use: No Advance Directives: No Advance Directives Information Provided: Yes Meds Allergies Allergy/AdvReac Type Severity Reaction Status Date / Time No Known Allergies Allergy Verified 11/26/24 07:00 Active Medications: Current Medications Acetaminophen (Acetaminophen 325 Mg Tablet) 650 mg PO Q6H PRN PRN Reason: Pain, Mild 1-3,fever,headache Al Hydroxide/Mg Hydroxide (Magnesium Hydrox/Alum Hydrox 30 Ml Oral.Susp) 30 ml PO Q4H PRN PRN Reason: Heartburn Calcium Carbonate (Calcium Carbonate 750 Mg Tab.Chew) 750 mg PO Q4H PRN PRN Reason: Heartburn Enoxaparin Sodium (Enoxaparin Sodium 30 Mg/0.3 Ml Syringe) 30 mg SUBCUT Q24H ERIC Glucose (Glucose Gel 15 Gm Gel..Gram.) 15 gm PO Q15M PRN; Protocol PRN Reason: per Hypoglycemia Standing Ord. Dextrose (D10) 250 mls @ 750 mls/hr IV Q15M PRN; Protocol PRN Reason: per Hypoglycemia Standing Ord. Lactated Ringer's (Lr) 1,000 mls @ 125 mls/hr IVCONT .Q8H [facility] Insulin Human Lispro (Insulin Lispro 100 Unit/Ml 3 Ml Vial) 0 unit SUBCUT QIDACHS [facility]; Protocol Magnesium Hydroxide (Milk Of Magnesia 30 Ml Oral.Susp) 30 ml PO DAILY PRN PRN Reason: Constipation Melatonin (Melatonin 3 Mg Tablet) 6 mg PO BEDTIME PRN PRN Reason: Insomnia Ondansetron HCl (Ondansetron Hcl 4 Mg/2 Ml Vial) 4 mg IVPUSH Q8H PRN PRN Reason: Nausea and Vomiting Sodium Chloride (0.9 % Sodium Chloride Flush 3 Ml Syringe) 3 [facility] Home Medications ?Medication ?Instructions ?Recorded ?Confirmed ?Last Taken ?Type acetaminophen 500 mg tablet 1,000 mg PO BID PRN Fever Or Pain 11/26/24 11/26/24 Unknown History albuterol sulfate 2.5 mg/3 mL mg inhalation 11/26/24 Unknown History (0.083 %) solution for nebulization albuterol sulfate 90 mcg/actuation 1 puff inhalation Q4-6H PRN 11/26/24 11/26/24 Unknown History aerosol inhaler Shortness Of Breath Or Wheezing amlodipine 10 mg tablet 10 mg PO DAILY 11/26/24 11/26/24 11/26/24 History ammonium lactate 12 % lotion 1 appl topical DAILY 11/26/24 11/26/24 11/26/24 History atorvastatin 10 mg tablet 10 mg PO DAILY 11/26/24 11/26/24 11/26/24 History ergocalciferol (vitamin D2) 1,250 1,250 mcg PO WE 11/26/24 11/26/24 Unknown History mcg (50,000 unit) capsule (Vitamin D2) fluticasone furoate 200 1 ea inhalation DAILY 11/26/24 11/26/24 11/26/24 History mcg-vilanterol 25 mcg/dose inhalation powder (Breo Ellipta) gabapentin 400 mg capsule 400 mg PO DAILY 11/26/24 11/26/24 11/26/24 History insulin aspar prot-insulin aspart 40 unit subcut BEDTIME 11/26/24 11/26/24 11/26/24 History 100 unit/mL (70-30) subcutaneous pen (Novolog Mix 70-30FlexPen U-100) insulin aspar prot-insulin aspart 43 unit subcut DAILY 11/26/24 11/26/24 11/26/24 History 100 unit/mL (70-30) subcutaneous pen (Novolog Mix 70-30FlexPen U-100) latanoprost 0.005 % eye drops 1 drp ophthalmic (eye) BEDTIME 11/26/24 11/26/24 11/26/24 History levothyroxine 100 mcg tablet 100 mcg PO DAILY@0600 11/26/24 11/26/24 11/26/24 History losartan 100 1 tab PO DAILY 11/26/24 11/26/24 11/26/24 History mg-hydrochlorothiazide 12.5 mg tablet triamcinolone acetonide 0.1 % 1 appl topical BID-TID PRN Rash 11/26/24 11/26/24 Unknown History topical ointment Physical Exam Vital Signs and Narrative: Vital Signs: Last Vital Signs Temp 97.8 F 11/26/24 10:03 Pulse 87 11/26/24 10:03 Resp 17 11/26/24 10:03 BP 183/80 H 11/26/24 10:03 Pulse Ox 99 11/26/24 10:03 O2 Del Method Room Air 11/26/24 10:03 BMI result Body Mass Index 30.6 Const: Other: General: AO X 3, no acute distress Resp: CTA bilateral CVS: S1,S2,RRR GI: +BS, NT, no distention Skin: No rash Neuro: motor grossly intact Psych: appropriate affect Results Labs 11/26/24 07:13 11/26/24 07:13 Labs: Laboratory Results - last 24 hr 11/26/24 11/26/24 11/26/24 07:02 07:13 08:58 MCV 87.9 MCH 29.4 MCHC 33.5 RDW 13.6 Plt Count 215 MPV 10.8 Immature Gran % (Auto) 0.4 Neut % (Auto) 72.1 Lymph % (Auto) 17.3 L [place] % (Auto) 6.6 Eos % (Auto) 2.6 Baso % (Auto) 1.0 Lymph # (Auto) 1.8 [place] # (Auto) 0.7 Eos # (Auto) 0.3 Baso # (Auto) 0.1 Abs Immat Gran (auto) 0.04 H Absolute Neuts (auto) 7.6 Absolute Nucleated RBC 0.000 Nucleated RBC % (auto) 0.0 PT 12.6 H INR 1.1 Anion Gap 13 Estim Creat Clear Calc 14.6 Estimated GFR 13 POC Glucose 106 Random Glucose 112 Calcium 8.6 D Total Bilirubin 0.3 AST 21 ALT 11 Alkaline Phosphatase 117 Troponin I High Sens 7.1 B-Natriuretic Peptide 131 H Total Protein 7.2 Albumin 4.0 Urine Color Urine Appearance Urine pH Ur Specific [place] Urine Protein Urine Glucose (UA) Urine Ketones Urine Blood Urine Nitrite Ur Leukocyte Esterase Urine RBC Urine WBC Ur Squamous Epith Cells Urine Bacteria Hyaline Casts Urine Opiates Screen Ur Buprenorphine Scrn Ur Oxycodone Screen Urine Methadone Screen Urine Fentanyl Screen Ur Barbiturates Screen Ur Phencyclidine Scrn Ur Amphetamines Screen U Benzodiazepines Scrn Urine Cocaine Screen U Marijuana (THC) Screen 11/26/24 08:59 MCV MCH MCHC RDW Plt Count MPV Immature Gran % (Auto) Neut % (Auto) Lymph % (Auto) [place] % (Auto) Eos % (Auto) Baso % (Auto) Lymph # (Auto) [place] # (Auto) Eos # (Auto) Baso # (Auto) Abs Immat Gran (auto) Absolute Neuts (auto) Absolute Nucleated RBC Nucleated RBC % (auto) PT INR Anion Gap Estim Creat Clear Calc Estimated GFR POC Glucose Random Glucose Calcium Total Bilirubin AST ALT Alkaline Phosphatase Troponin I High Sens B-Natriuretic Peptide Total Protein Albumin Urine Color Yellow Urine Appearance Clear Urine pH 5.5 Ur Specific [place] 1.015 Urine Protein 300 (3+) H Urine Glucose (UA) Negative Urine Ketones Negative Urine Blood Negative Urine Nitrite Negative Ur Leukocyte Esterase Negative Urine RBC 0-2 Urine WBC 0-5 Ur Squamous Epith Cells 0-2 Urine Bacteria None Seen Hyaline Casts 0-2 Urine Opiates Screen Not Detected Ur Buprenorphine Scrn Not Detected Ur Oxycodone Screen Not Detected Urine Methadone Screen Positive H Urine Fentanyl Screen Not Detected Ur Barbiturates Screen Not Detected Ur Phencyclidine Scrn Not Detected Ur Amphetamines Screen Not Detected U Benzodiazepines Scrn Not Detected Urine Cocaine Screen Not Detected U Marijuana (THC) Screen Not Detected Imaging Radiologist's Impressions: Impressions Cervical Spine CT 11/26/24 08:40 IMPRESSION: No acute fracture or trauma-related listhesis. Multilevel cervical spondylosis more conspicuous at C6-7 and C5-6. Atherosclerosis disease, carotid arteries. Osteopenia versus osteoporosis. Fleischner guidelines were followed. Electronically signed by: Robby Oneill MD 11/26/2024 09:55 AM EST RP Head CT 11/26/24 08:40 IMPRESSION: 1. No acute intracranial abnormalities. 2. Minimal buckling of the left nasal bone, uncertain in chronicity. Correlate with point tenderness. Otherwise, no evidence of acute maxillofacial fracture. 3. Ancillary findings as discussed. Electronically signed by: Que Ramey MD 11/26/2024 10:02 AM EST RP Face CT 11/26/24 09:06 IMPRESSION: 1. No acute intracranial abnormalities. 2. Minimal buckling of the left nasal bone, uncertain in chronicity. Correlate with point tenderness. Otherwise, no evidence of acute maxillofacial fracture. 3. Ancillary findings as discussed. Electronically signed by: Que Ramey MD 11/26/2024 10:02 AM EST RP Assessment and Plan (1) PACO (acute kidney injury): Status: Acute (2) Syncope: Status: Acute (3) CKD (chronic kidney disease): Status: Acute Plan 69/m with HTN, Hypothyroidism, diabetes here with syncope and found to have renal failure, possible chronic PACO vas cKD -Hydrate with IvF and follow BMP -nephrology consult -hold ARB/NANETTE and diuretics -US of kidney Hyperkalemia--mild d/t renal failure -Lokelma and recheck tomorrow Syncope, etiology unclear, -tele monitoring -check orthostatic BP HTN--BP high -continue Norvasc -hold Losartan/HCTZ d/t renal failure HypoT -levothyroxine HLD-Lipitor Diabetes on 70/30 at home -change to Lantus + SSI, diabetic diet DVT Prop; lovenox full code admission for work up for paco, syncope Quality Stroke Does the patient have a stroke diagnosis?: No VTE Prior VTE?: No VTE Risk Level:: Medical - moderate - high VTE Device Contraindication: Treatment Not Indicated VTE Drug Contraindication: N/A - Med Ordered
[2024-11-26] MEDS: Gabapentin 400 MG CAPSULE PO (14:21)
[2024-11-26] MEDS: amLODIPine Besylate 10 MG TABLET PO (14:21)
[2024-11-26] MEDS: Levothyroxine Sodium 100 MCG TABLET PO (14:22)
[2024-11-26] MEDS: Atorvastatin Calcium 10 MG TABLET PO (14:22)
[2024-11-26] MEDS: Enoxaparin Sodium 30 MG/0.3 ML SYRINGE SUBCUT (14:22)
--- NOTE | 2024-11-26 14:45 | PM.EVENT ---
Event Note Date of Service: 11/27/24 Event Note: Chart reviewed. 69-year-old man with renal failure and mild hyperkalemia. Workup ordered Check renal ultrasonogram Lokelma 10 g p.o. x1 dose. Full consult to follow Time Spent With Patient Time: Total time managing care of this patient today ____ minutes.
[2024-11-26] MEDS: Lactated Ringers 1,000 ML 125 ML IVCONT ×2 (15:11→21:46)
[2024-11-26] MEDS: Sodium Zirconium Cyclosilicate 10 GM POWD.PACK PO (15:17)
[2024-11-26 15:59] LABS: Glucose, Whole Blood 192 mg/dL (60-115)
--- NOTE | 2024-11-26 16:00 | PC.NURSE ---
assumed care of pt at 1500. patient moved into room 19 and placed on judicial reporter. pt reporting all over body pain, unsure if this is chronic or not. denies any acute distress. answering all questions appropriately. pt states he recently moved here from [place], has not yet established a doctor, unsure if he has CKD or kidney issues. poc 192 will administer insulin and called kitchen to obtain diabetic tray . daughter at bedside
[2024-11-26] MEDS: Insulin Lispro 100 UNIT/ML 3 ML VIAL SUBCUT ×2 (16:14→21:45)
[2024-11-26 21:42] LABS: Glucose, Whole Blood 271 mg/dL (60-115)
[2024-11-26] MEDS: Insulin Glargine,Hum.rec.anlog 100 UNIT/ML 10 ML VIAL 20 UNIT SUBCUT (21:46)
--- NOTE | 2024-11-26 23:30 | PC.NURSE ---
Addendum entered by Zayda Andersen 11/27/24 07:17: Pt A&Ox3, denies any pain. Pt ambulated to BR with cane. Original Note: This writer producer assumed care of this Pt at 2300. Pt appears to be sleeping at this time, equal, non labored respirations. IV running per JAN. Plan of care on going.
[2024-11-27] VITALS (9 sets, daily range): BP systolic 164–190; BP diastolic 62–80; PULSE 67–77; RESP 12–18; TEMP 36.5–36.9; O2SAT 97–100; BMI 30.5
--- NOTE | 2024-11-27 00:07 | MHC.EDTECH ---
late entry: this tech assumed care of pt @ 2300, the pt was witnessed sleeping in strecther w/ equal chest rise and unlabored respirations present, pt is connected to desk monitor
[2024-11-27] MEDS: Lactated Ringers 1,000 ML 125 ML IVCONT ×2 (04:43→23:36)
[2024-11-27 05:10] LABS: Anion Gap 14 (12-20); Blood Urea Nitrogen 56 mg/dL (9-16); Calcium 8.7 mg/dL (8.4-10.2); Carbon Dioxide 19 mmol/L (22-29); Chloride 113 mmol/L (96-108); Creatinine Clr Calc Pharmacy 16.1; Estimated Glomerular Filt Rate 15; Glucose Random 114 mg/dL (60-115); Potassium 5.4 mmol/L (3.3-5.1); Sodium 141 mmol/L (135-145)
[2024-11-27 06:54] LABS: Glucose, Whole Blood 109 mg/dL (60-115)
[2024-11-27] MEDS: Levothyroxine Sodium 100 MCG TABLET PO (06:58)
[2024-11-27] MEDS: Sodium Zirconium Cyclosilicate 10 GM POWD.PACK PO (08:07)
[2024-11-27] MEDS: Ammonium Lactate 12 % Lotion 226 GM BOTTLE 1 APPL TOPICAL (08:30)
[2024-11-27] MEDS: Triamcinolone Acet 0.1 % Oint 15 GM TUBE 1 APPL TOPICAL (08:30)
[2024-11-27] MEDS: Atorvastatin Calcium 10 MG TABLET PO (08:56)
[2024-11-27] MEDS: amLODIPine Besylate 10 MG TABLET PO (08:56)
[2024-11-27] MEDS: Gabapentin 400 MG CAPSULE PO (08:56)
[2024-11-27] MEDS: Ergocalciferol (Vitamin D2) 1,250 MCG CAPSULE 1250 MCG PO (09:06)
[2024-11-27] MEDS: hydrALAZINE HCl 20 MG/ML VIAL 5 MG IVPUSH (12:07)
[2024-11-27] MEDS: Insulin Lispro 100 UNIT/ML 3 ML VIAL SUBCUT ×2 (12:12→21:28)
[2024-11-27 12:16] LABS: Glucose, Whole Blood 156 mg/dL (60-115)
--- NOTE | 2024-11-27 12:26 | PM.CNNEP ---
History of Present Illness Reason for Consult Consult date: 11/27/24 Reason for consult: Renal failure Chief Complaint Chief complaint: Syncope PACO History of Present Illness Narrative: 69-year-old male with a history of hypertension, diabetes mellitus, and hypothyroidism presents with syncope. He reports having two syncopal episodes last week but has difficulty describing the circumstances leading to these episodes. There was no head injury, but he did experience a loss of consciousness (LOC). He reports rib pain; however, X-ray findings are negative. Head CT, facial CT, and cervical spine CT are negative for acute injury. ECG shows anterior OH of undetermined age. Lab work reveals a creatinine level of 4, with the last known creatinine level of 1.4 in 2020. He has not aware of any renal issues in the past. Poor historian Review of Systems Constitutional: Denies fever(s) and Denies weight loss Cardiovascular: Denies chest pain Respiratory: Denies cough and Denies hemoptysis Gastrointestinal: Denies abdominal pain, Denies diarrhea and Denies nausea Musculoskeletal: Denies back pain Denies focal weakness [facility] Past Medical History Medical History (Updated 11/27/24 @ 07:48 by Dianelys Hernandez RN) Asthma Opiate dependence Diabetes HLD (hyperlipidemia) HTN (hypertension) Social History Social History Household Members: Family Housing: Apartment Do you presently have visiting nurse or other home services: No Patient Tobacco Use Status: Former Tobacco user Substance Use Type: Former Substance User service: No Meds Allergies Allergy/AdvReac Type Severity Reaction Status Date / Time No Known Allergies Allergy Verified 11/26/24 07:00 Active Medications: Current Medications Acetaminophen (Acetaminophen 325 Mg Tablet) 650 mg PO Q6H PRN PRN Reason: Pain, Mild 1-3,fever,headache Al Hydroxide/Mg Hydroxide (Magnesium Hydrox/Alum Hydrox 30 Ml Oral.Susp) 30 ml PO Q4H PRN PRN Reason: Heartburn Albuterol Sulfate (Albuterol Sulfate 90 Mcg 8 Gm Inhaler) 1 puff INHALE Q4H PRN PRN Reason: Shortness Of Breath Or Wheezing Amlodipine Besylate (Amlodipine Besylate 10 Mg Tablet) 10 mg PO DAILY [facility]; Protocol Last Admin: 11/27/24 08:56 Dose: 10 mg Atorvastatin Calcium (Atorvastatin Calcium 10 Mg Tablet) 10 mg PO DAILY [facility] Last Admin: 11/27/24 08:56 Dose: 10 mg Calcium Carbonate (Calcium Carbonate 750 Mg Tab.Chew) 750 mg PO Q4H PRN PRN Reason: Heartburn Enoxaparin Sodium (Enoxaparin Sodium 30 Mg/0.3 Ml Syringe) 30 mg SUBCUT Q24H [facility] Last Admin: 11/26/24 14:22 Dose: 30 mg Ergocalciferol (Ergocalciferol (Vitamin D2) 1,250 Mcg Capsule) 1,250 mcg PO WE [facility] Last Admin: 11/27/24 09:06 Dose: 1,250 mcg Fluticasone/Vilanterol (Fluticasone/Vilanterol 200/25 Blst.W.Dev) 1 puff INHALE RDAILY [facility] Last Admin: 11/27/24 07:57 Dose: Not Given Gabapentin (Gabapentin 400 Mg Capsule) 400 mg PO DAILY [facility] Last Admin: 11/27/24 08:56 Dose: 400 mg Glucose (Glucose Gel 15 Gm Gel..Gram.) 15 gm PO Q15M PRN; Protocol PRN Reason: per Hypoglycemia Standing Ord. Hydralazine HCl (Hydralazine Hcl 20 Mg/Ml Vial) 5 mg IVPUSH Q6H PRN PRN Reason: for SBP>180 Last Admin: 11/27/24 12:07 Dose: 5 mg Dextrose (D10) 250 mls @ 750 mls/hr IV Q15M PRN; Protocol PRN Reason: per Hypoglycemia Standing Ord. Lactated Ringer's (Lr) 1,000 mls @ 125 mls/hr IVCONT .Q8H [facility] Last Admin: 11/27/24 04:43 Dose: 125 mls/hr Insulin Glargine (Insulin Glargine,Hum.Rec.Anlog 100 Unit/Ml 10 Ml Vial) 20 unit SUBCUT BEDTIME [facility] Last Admin: 11/26/24 21:46 Dose: 20 unit Insulin Human Lispro (Insulin Lispro 100 Unit/Ml 3 Ml Vial) 0 unit SUBCUT QIDACHS [facility]; Protocol Last Admin: 11/27/24 12:12 Dose: 2 unit Lactic Acid (Ammonium Lactate 12 % Lotion 226 Gm Bottle) 1 appl TOPICAL DAILY [facility]; Protocol Last Admin: 11/27/24 08:30 Dose: 1 appl Latanoprost (Latanoprost 0.005 % Ophth Peace 2.5 Ml Drops) 1 drop EYE-BOTH BEDTIME [facility] Last Admin: 11/26/24 22:14 Dose: Not Given Levothyroxine Sodium (Levothyroxine Sodium 100 Mcg Tablet) 100 mcg PO DAILY@0600 [facility] Last Admin: 11/27/24 06:58 Dose: 100 mcg Magnesium Hydroxide (Milk Of Magnesia 30 Ml Oral.Susp) 30 ml PO DAILY PRN PRN Reason: Constipation Melatonin (Melatonin 3 Mg Tablet) 6 mg PO BEDTIME PRN PRN Reason: Insomnia Ondansetron HCl (Ondansetron Hcl 4 Mg/2 Ml Vial) 4 mg IVPUSH Q8H PRN PRN Reason: Nausea and Vomiting Sodium Chloride (0.9 % Sodium Chloride Flush 3 Ml Syringe) 3 ml IVFLUSH QSHIFT [facility] Last Admin: 11/27/24 07:18 Dose: Not Given Triamcinolone Acetonide (Triamcinolone Acet 0.1 % Oint 15 Gm Tube) 1 appl TOPICAL TID PRN PRN Reason: Rash Last Admin: 11/27/24 08:30 Dose: 1 appl Home Medications ?Medication ?Instructions ?Recorded ?Confirmed ?Last Taken ?Type acetaminophen 500 mg tablet 1,000 mg PO BID PRN Fever Or Pain 11/26/24 11/26/24 Unknown History albuterol sulfate 2.5 mg/3 mL mg inhalation 11/26/24 Unknown History (0.083 %) solution for nebulization albuterol sulfate 90 mcg/actuation 1 puff inhalation Q4-6H PRN 11/26/24 11/26/24 Unknown History aerosol inhaler Shortness Of Breath Or Wheezing amlodipine 10 mg tablet 10 mg PO DAILY 11/26/24 11/26/24 11/26/24 History ammonium lactate 12 % lotion 1 appl topical DAILY 11/26/24 11/26/24 11/26/24 History atorvastatin 10 mg tablet 10 mg PO DAILY 11/26/24 11/26/24 11/26/24 History ergocalciferol (vitamin D2) 1,250 1,250 mcg PO WE 11/26/24 11/26/24 Unknown History mcg (50,000 unit) capsule (Vitamin D2) fluticasone furoate 200 1 ea inhalation DAILY 11/26/24 11/26/24 11/26/24 History mcg-vilanterol 25 mcg/dose inhalation powder (Breo Ellipta) gabapentin 400 mg capsule 400 mg PO DAILY 11/26/24 11/26/24 11/26/24 History insulin aspar prot-insulin aspart 40 unit subcut BEDTIME 11/26/24 11/26/24 11/26/24 History 100 unit/mL (70-30) subcutaneous pen (Novolog Mix 70-30FlexPen U-100) insulin aspar prot-insulin aspart 43 unit subcut DAILY 11/26/24 11/26/24 11/26/24 History 100 unit/mL (70-30) subcutaneous pen (Novolog Mix 70-30FlexPen U-100) latanoprost 0.005 % eye drops 1 drp ophthalmic (eye) BEDTIME 11/26/24 11/26/24 11/26/24 History levothyroxine 100 mcg tablet 100 mcg PO DAILY@0600 11/26/24 11/26/24 11/26/24 History losartan 100 1 tab PO DAILY 11/26/24 11/26/24 11/26/24 History mg-hydrochlorothiazide 12.5 mg tablet triamcinolone acetonide 0.1 % 1 appl topical BID-TID PRN Rash 11/26/24 11/26/24 Unknown History topical ointment Physical Exam Vital Signs: Last Vital Signs Temp 97.7 F 11/27/24 09:54 Pulse 77 11/27/24 09:54 Resp 18 11/27/24 09:54 BP 180/80 H 11/27/24 09:54 Pulse Ox 99 11/27/24 09:54 O2 Del Method Room Air 11/27/24 09:54 BMI result Body Mass Index 30.5 Comfortable Neck supple no JVD. Lungs entry equal no rales. Heart S1-S2 heard no gallop or rub. Abdomen soft nontender. Neuro alert awake oriented. No asterixis. Extremities no edema. Results Lab Results 11/26/24 07:13 11/28/24 06:00 Lab results: Chemistry 11/26/24 11/27/24 07:13 04:28 Sodium 140 141 Potassium 5.5 H 5.4 H Carbon Dioxide 21 L 19 L BUN 58 H 56 H Creatinine 4.49 H* 4.08 H* Calcium 8.6 D 8.7 Hematology 11/26/24 07:13 WBC 10.5 Hgb 8.5 L Plt Count 215 Urinalysis 11/26/24 08:59 Urine Color Yellow Urine Appearance Clear Urine pH 5.5 Ur Specific [place] 1.015 Urine Protein 300 (3+) H Urine Glucose (UA) Negative Urine Ketones Negative Urine Blood Negative Urine Nitrite Negative Ur Leukocyte Esterase Negative Urine RBC 0-2 Urine WBC 0-5 Ur Squamous Epith Cells 0-2 Hyaline Casts 0-2 Assessment and Plan (1) CKD (chronic kidney disease): Status: Acute Plan Baseline renal function is unknown. He might have a component of acute kidney injury. Obstruction should be ruled out. He has significant proteinuria which needs further workup as well. Hyperkalemia Suggest Renal ultrasonogram ordered Lokelma IV hydration with normal saline keep intake more than output. Urine studies ordered. No indication for dialysis yet. Procedures Date of Service Date of Service: 11/28/24
--- NOTE | 2024-11-27 13:01 | MHC.CM.PN ---
IMM 11/27. Pt self-care, lives at home with his daughter (pt originally from [place] and recently moved in with her). Education provided on HCP, pt declined at this time. Pts daughter to transport him home at discharge. Pt does not have a PCP due to recently moving here, local list offered but declined.
--- NOTE | 2024-11-27 13:39 | P.PNIM_ITS ---
Subjective Subjective Date of Service: 11/27/24 Interval History: f/u on PACO, and uncontrolled HTN Physical Exam 2 Vital Signs: Vital Signs: Last Vital Signs Temp 98.3 F 11/27/24 12:00 Pulse 74 11/27/24 12:00 Resp 18 11/27/24 12:00 BP 190/72 H 11/27/24 12:00 Pulse Ox 98 11/27/24 12:00 O2 Del Method Room Air 11/27/24 12:00 BMI result Body Mass Index 30.5 Const: Other: General: AO X 3, no acute distress Resp: CTA bilateral CVS: S1,S2,RRR GI: +BS, NT, no distention Skin: No rash Neuro: motor grossly intact Psych: appropriate affect Objective Data Active Medications Acetaminophen (Acetaminophen 325 Mg Tablet) 650 mg PO Q6H PRN PRN Reason: Pain, Mild 1-3,fever,headache Al Hydroxide/Mg Hydroxide (Magnesium Hydrox/Alum Hydrox 30 Ml Oral.Susp) 30 ml PO Q4H PRN PRN Reason: Heartburn Albuterol Sulfate (Albuterol Sulfate 90 Mcg 8 Gm Inhaler) 1 puff INHALE Q4H PRN PRN Reason: Shortness Of Breath Or Wheezing Amlodipine Besylate (Amlodipine Besylate 10 Mg Tablet) 10 mg PO DAILY [facility]; Protocol Last Admin: 11/27/24 08:56 Dose: 10 mg Documented By: GAYLE Atorvastatin Calcium (Atorvastatin Calcium 10 Mg Tablet) 10 mg PO DAILY [facility] Last Admin: 11/27/24 08:56 Dose: 10 mg Documented By: GAYLE Calcium Carbonate (Calcium Carbonate 750 Mg Tab.Chew) 750 mg PO Q4H PRN PRN Reason: Heartburn Enoxaparin Sodium (Enoxaparin Sodium 30 Mg/0.3 Ml Syringe) 30 mg SUBCUT Q24H [facility] Last Admin: 11/26/24 14:22 Dose: 30 mg Documented By: RADHA Ergocalciferol (Ergocalciferol (Vitamin D2) 1,250 Mcg Capsule) 1,250 mcg PO WE [facility] Last Admin: 11/27/24 09:06 Dose: 1,250 mcg Documented By: GAYLE Fluticasone/Vilanterol (Fluticasone/Vilanterol 200/25 Blst.W.Dev) 1 puff INHALE RDAILY [facility] Last Admin: 11/27/24 07:57 Dose: Not Given Documented By: NELL Non-Admin Reason: pharmacy called for med Gabapentin (Gabapentin 400 Mg Capsule) 400 mg PO DAILY [facility] Last Admin: 11/27/24 08:56 Dose: 400 mg Documented By: GAYLE Glucose (Glucose Gel 15 Gm Gel..Gram.) 15 gm PO Q15M PRN; Protocol PRN Reason: per Hypoglycemia Standing Ord. Hydralazine HCl (Hydralazine Hcl 20 Mg/Ml Vial) 5 mg IVPUSH Q6H PRN PRN Reason: for SBP>180 Last Admin: 11/27/24 12:07 Dose: 5 mg Documented By: GAYLE Dextrose (D10) 250 mls @ 750 mls/hr IV Q15M PRN; Protocol PRN Reason: per Hypoglycemia Standing Ord. Lactated Ringer's (Lr) 1,000 mls @ 125 mls/hr IVCONT .Q8H [facility] Last Admin: 11/27/24 04:43 Dose: 125 mls/hr Documented By: RONDA Insulin Glargine (Insulin Glargine,Hum.Rec.Anlog 100 Unit/Ml 10 Ml Vial) 20 unit SUBCUT BEDTIME [facility] Last Admin: 11/26/24 21:46 Dose: 20 unit Documented By: LANDRY Insulin Human Lispro (Insulin Lispro 100 Unit/Ml 3 Ml Vial) 0 unit SUBCUT QIDACHS [facility]; Protocol Last Admin: 11/27/24 12:12 Dose: 2 unit Documented By: GAYLE Lactic Acid (Ammonium Lactate 12 % Lotion 226 Gm Bottle) 1 appl TOPICAL DAILY [facility]; Protocol Last Admin: 11/27/24 08:30 Dose: 1 appl Documented By: RONDA Latanoprost (Latanoprost 0.005 % Ophth Peace 2.5 Ml Drops) 1 drop EYE-BOTH BEDTIME [facility] Last Admin: 11/26/24 22:14 Dose: Not Given Documented By: LANDRY Non-Admin Reason: Med Not Available Levothyroxine Sodium (Levothyroxine Sodium 100 Mcg Tablet) 100 mcg PO DAILY@0600 [facility] Last Admin: 11/27/24 06:58 Dose: 100 mcg Documented By: RONDA Magnesium Hydroxide (Milk Of Magnesia 30 Ml Oral.Susp) 30 ml PO DAILY PRN PRN Reason: Constipation Melatonin (Melatonin 3 Mg Tablet) 6 mg PO BEDTIME PRN PRN Reason: Insomnia Ondansetron HCl (Ondansetron Hcl 4 Mg/2 Ml Vial) 4 mg IVPUSH Q8H PRN PRN Reason: Nausea and Vomiting Sodium Chloride (0.9 % Sodium Chloride Flush 3 Ml Syringe) 3 ml IVFLUSH QSHIFT [facility] Last Admin: 11/27/24 07:18 Dose: Not Given Documented By: RONDA Non-Admin Reason: IV Running Triamcinolone Acetonide (Triamcinolone Acet 0.1 % Oint 15 Gm Tube) 1 appl TOPICAL TID PRN PRN Reason: Rash Last Admin: 11/27/24 08:30 Dose: 1 appl Documented By: RONDA Labs 11/26/24 07:13 11/27/24 04:28 Labs: Laboratory Results - last 24 hr 11/26/24 11/26/24 11/27/24 15:55 21:38 04:28 Anion Gap 14 Estim Creat Clear Calc 16.1 Estimated GFR 15 POC Glucose 192 H 271 H Random Glucose 114 Calcium 8.7 11/27/24 11/27/24 06:50 11:49 Anion Gap Estim Creat Clear Calc Estimated GFR POC Glucose 109 156 H Random Glucose Calcium Assessment and Plan (1) PACO (acute kidney injury): Status: Acute (2) CKD (chronic kidney disease): Status: Acute (3) Syncope: Status: Acute Plan 69/m with HTN, Hypothyroidism, diabetes here with syncope and found to have renal failure, possible chronic PACO vas cKD -Hydrate with IvF and follow BMP -nephrology consult noted -hold ARB/NANETTE and diuretics -US of kidney pending Hyperkalemia--mild d/t renal failure -Lokelma and recheck Syncope, etiology unclear, -tele monitoring HTN--BP high -continue Norvasc -hold Losartan/HCTZ d/t renal failure -add Hydralazine HypoT -levothyroxine Mild metabolic acidosis d/t renal failure, monitoron ivf and replace bicab if around 15 HLD-Lipitor Diabetes on 70/30 at home -change to Lantus + SSI, diabetic diet Opioid use on methadone, clinic in [place] -addiction med consult DVT Prop; lovenox full code admission for work up for paco, syncope Quality Stroke Does the patient have a stroke diagnosis?: No VTE Prior VTE?: No VTE Risk Level:: Medical - moderate - high VTE Device Contraindication: Treatment Not Indicated VTE Drug Contraindication: N/A - Med Ordered
[2024-11-27 15:04] LABS: Anion Gap 14 (12-20); Carbon Dioxide 19 mmol/L (22-29); Chloride 110 mmol/L (96-108); Potassium 5.4 mmol/L (3.3-5.1); Sodium 138 mmol/L (135-145)
--- NOTE | 2024-11-27 15:40 | MHC.RECOVRN ---
Met with pt in [facility] after consult placed to Addiction Medicine for opioid dependence. Pt had presented to the hospital on 11/26 reporting passing out twice last week with LOC. Pt also reported generalized pain and pain to right side of face. Upon evaluation, pt admitted for treatment of PACO, CKD, and syncope. Pt laying in bed, awake, alert, easily engages in conversation, appears comfortable. Pt reports he moved from [place] to [place] earlier this month. Pt reports his [place] gave him 24 take home bottles of methadone, 30 mg. Pt reports he would like to connect to [facility] in [place]. Pt denies history of overdose. Reports recovery from heroin, last use years ago. Pt denies questions or concerns for t/w. Discussed with Mary Deal APRN.
[2024-11-27] MEDS: Enoxaparin Sodium 30 MG/0.3 ML SYRINGE SUBCUT (15:43)
[2024-11-27] MEDS: methADONE HCl 20 MG/2 ML ORAL.CONC 30 MG PO (15:43)
[2024-11-27] MEDS: hydrALAZINE HCl 10 MG TABLET PO ×2 (15:43→20:38)
[2024-11-27] MEDS: 0.9 % Sodium Chloride Flush 3 ML SYRINGE IVFLUSH (15:46)
[2024-11-27 16:21] LABS: Glucose, Whole Blood 149 mg/dL (60-115)
[2024-11-27 20:45] LABS: Glucose, Whole Blood 240 mg/dL (60-115)
[2024-11-27] MEDS: Insulin Glargine,Hum.rec.anlog 100 UNIT/ML 10 ML VIAL 20 UNIT SUBCUT (21:28)
[2024-11-28] VITALS (7 sets, daily range): BP systolic 141–176; BP diastolic 66–96; PULSE 68–81; RESP 12–73; TEMP 36.5–37.2; O2SAT 96–98
[2024-11-28] MEDS: Levothyroxine Sodium 100 MCG TABLET PO (05:15)
[2024-11-28 07:17] LABS: Anion Gap 12 (12-20); Blood Urea Nitrogen 52 mg/dL (9-16); Calcium 8.6 mg/dL (8.4-10.2); Carbon Dioxide 20 mmol/L (22-29); Chloride 113 mmol/L (96-108); Creatinine Clr Calc Pharmacy 18.5; Estimated Glomerular Filt Rate 17; Glucose Random 135 mg/dL (60-115); Potassium 5.1 mmol/L (3.3-5.1); Sodium 140 mmol/L (135-145)
[2024-11-28 07:49] LABS: Glucose, Whole Blood 130 mg/dL (60-115)
[2024-11-28] MEDS: Fluticasone/Vilanterol 200/25 BLST.W.DEV 1 PUFF INHALE (08:37)
--- NOTE | 2024-11-28 09:39 | HO.PM.IMPN ---
Subjective Subjective Date of Service: 11/28/24 Interval History: f/u on PACO, and uncontrolled HTN blood pressure is better, renal function improving Physical Exam Vital Signs: Vital Signs: Last Vital Signs Temp 98.0 F 11/28/24 08:00 Pulse 68 11/28/24 08:39 Resp 15 11/28/24 08:39 BP 176/77 H 11/28/24 08:00 Pulse Ox 98 11/28/24 08:00 O2 Del Method Room Air 11/28/24 08:00 BMI result Body Mass Index 30.5 Const: Other: General: AO X 3, no acute distress Resp: CTA bilateral CVS: S1,S2,RRR GI: +BS, NT, no distention Skin: No rash Neuro: motor grossly intact Psych: appropriate affect Objective Data Active Medications Acetaminophen (Acetaminophen 325 Mg Tablet) 650 mg PO Q6H PRN PRN Reason: Pain, Mild 1-3,fever,headache Al Hydroxide/Mg Hydroxide (Magnesium Hydrox/Alum Hydrox 30 Ml Oral.Susp) 30 ml PO Q4H PRN PRN Reason: Heartburn Albuterol Sulfate (Albuterol Sulfate 90 Mcg 8 Gm Inhaler) 1 puff INHALE Q4H PRN PRN Reason: Shortness Of Breath Or Wheezing Amlodipine Besylate (Amlodipine Besylate 10 Mg Tablet) 10 mg PO DAILY [facility]; Protocol Last Admin: 11/27/24 08:56 Dose: 10 mg Documented By: GAYLE Atorvastatin Calcium (Atorvastatin Calcium 10 Mg Tablet) 10 mg PO DAILY [facility] Last Admin: 11/27/24 08:56 Dose: 10 mg Documented By: GAYLE Calcium Carbonate (Calcium Carbonate 750 Mg Tab.Chew) 750 mg PO Q4H PRN PRN Reason: Heartburn Enoxaparin Sodium (Enoxaparin Sodium 30 Mg/0.3 Ml Syringe) 30 mg SUBCUT Q24H [facility] Last Admin: 11/27/24 15:43 Dose: 30 mg Documented By: GAYLE Ergocalciferol (Ergocalciferol (Vitamin D2) 1,250 Mcg Capsule) 1,250 mcg PO WE [facility] Last Admin: 11/27/24 09:06 Dose: 1,250 mcg Documented By: GAYLE Fluticasone/Vilanterol (Fluticasone/Vilanterol 200/25 Blst.W.Dev) 1 puff INHALE RDAILY [facility] Last Admin: 11/28/24 08:37 Dose: 1 puff Documented By: CAROLINA Gabapentin (Gabapentin 400 Mg Capsule) 400 mg PO DAILY [facility] Last Admin: 11/27/24 08:56 Dose: 400 mg Documented By: GAYLE Glucose (Glucose Gel 15 Gm Gel..Gram.) 15 gm PO Q15M PRN; Protocol PRN Reason: per Hypoglycemia Standing Ord. Hydralazine HCl (Hydralazine Hcl 20 Mg/Ml Vial) 5 mg IVPUSH Q6H PRN PRN Reason: for SBP>180 Last Admin: 11/27/24 12:07 Dose: 5 mg Documented By: GAYLE Hydralazine HCl (Hydralazine Hcl 10 Mg Tablet) 10 mg PO TID [facility]; Protocol Last Admin: 11/27/24 20:38 Dose: 10 mg Documented By: JOE Dextrose (D10) 250 mls @ 750 mls/hr IV Q15M PRN; Protocol PRN Reason: per Hypoglycemia Standing Ord. Lactated Ringer's (Lr) 1,000 mls @ 125 mls/hr IVCONT .Q8H [facility] Last Admin: 11/28/24 05:46 Dose: Not Given Documented By: JOE Non-Admin Reason: IV Running Insulin Glargine (Insulin Glargine,Hum.Rec.Anlog 100 Unit/Ml 10 Ml Vial) 20 unit SUBCUT BEDTIME [facility] Last Admin: 11/27/24 21:28 Dose: 20 unit Documented By: JOE Insulin Human Lispro (Insulin Lispro 100 Unit/Ml 3 Ml Vial) 0 unit SUBCUT QIDACHS [facility]; Protocol Last Admin: 11/28/24 07:55 Dose: Not Given Documented By: JOELLE Non-Admin Reason: No Insulin Coverage Lactic Acid (Ammonium Lactate 12 % Lotion 226 Gm Bottle) 1 appl TOPICAL DAILY [facility]; Protocol Last Admin: 11/27/24 08:30 Dose: 1 appl Documented By: SERRANGwen Latanoprost (Latanoprost 0.005 % Ophth Peace 2.5 Ml Drops) 1 drop EYE-BOTH BEDTIME [facility] Last Admin: 11/27/24 23:34 Dose: Not Given Documented By: JOE Non-Admin Reason: Med Not Available Levothyroxine Sodium (Levothyroxine Sodium 100 Mcg Tablet) 100 mcg PO DAILY@0600 [facility] Last Admin: 11/28/24 05:15 Dose: 100 mcg Documented By: JOE Magnesium Hydroxide (Milk Of Magnesia 30 Ml Oral.Susp) 30 ml PO DAILY PRN PRN Reason: Constipation Melatonin (Melatonin 3 Mg Tablet) 6 mg PO BEDTIME PRN PRN Reason: Insomnia Methadone HCl (Methadone Hcl 20 Mg/2 Ml Oral.Conc) 30 mg PO DAILY [facility] Ondansetron HCl (Ondansetron Hcl 4 Mg/2 Ml Vial) 4 mg IVPUSH Q8H PRN PRN Reason: Nausea and Vomiting Sodium Chloride (0.9 % Sodium Chloride Flush 3 Ml Syringe) 3 ml IVFLUSH QSHIFT [facility] Last Admin: 11/28/24 09:19 Dose: Not Given Documented By: JOELLE Non-Admin Reason: IV Running Triamcinolone Acetonide (Triamcinolone Acet 0.1 % Oint 15 Gm Tube) 1 appl TOPICAL TID PRN PRN Reason: Rash Last Admin: 11/27/24 08:30 Dose: 1 appl Documented By: GERRYANX Labs 11/26/24 07:13 11/28/24 06:00 Labs: Laboratory Results - last 24 hr 11/27/24 11/27/24 11/27/24 11:49 14:22 15:51 Hold Purple Top Anion Gap 14 Estim Creat Clear Calc Estimated GFR POC Glucose 156 H 149 H Random Glucose Calcium 11/27/24 11/28/24 11/28/24 20:36 06:00 07:35 Hold Purple Top SEE NOTE Anion Gap 12 Estim Creat Clear Calc 18.5 Estimated GFR 17 POC Glucose 240 H 130 H Random Glucose 135 H Calcium 8.6 Assessment and Plan (1) PACO (acute kidney injury): Status: Acute (2) CKD (chronic kidney disease): Status: Acute (3) Syncope: Status: Acute Plan 69/m with HTN, Hypothyroidism, diabetes here with syncope and found to have renal failure, possible chronic PACO vas cKD--? Cr at baseline -Hydrate with IvF and follow BMP -nephrology consult noted -hold ARB/NANETTE and diuretics -US of kidneys normal Hyperkalemia--mild d/t renal failure -Lokelma and recheck Syncope, etiology unclear, -tele monitoring HTN--BP high -continue Norvasc -hold Losartan/HCTZ d/t renal failure -added Hydralazine, adjust for optimal control HypoT -levothyroxine Mild metabolic acidosis d/t renal failure, monitoron ivf and replace bicab if around 15 HLD-Lipitor Diabetes on 70/30 at home -change to Lantus + SSI, diabetic diet Opioid use on methadone, clinic in [place] -addiction med consult -continue methaadone DVT Prop; lovenox full code admission for work up for paco, syncope Quality Stroke Does the patient have a stroke diagnosis?: No VTE Prior VTE?: No VTE Risk Level:: Medical - moderate - high VTE Device Contraindication: Treatment Not Indicated VTE Drug Contraindication: N/A - Med Ordered
[2024-11-28] MEDS: amLODIPine Besylate 10 MG TABLET PO (09:50)
[2024-11-28] MEDS: methADONE HCl 20 MG/2 ML ORAL.CONC 30 MG PO (09:50)
[2024-11-28] MEDS: Atorvastatin Calcium 10 MG TABLET PO (09:50)
[2024-11-28] MEDS: Gabapentin 400 MG CAPSULE PO (09:50)
[2024-11-28] MEDS: hydrALAZINE HCl 10 MG TABLET PO ×2 (09:50→14:15)
[2024-11-28 11:39] LABS: Glucose, Whole Blood 175 mg/dL (60-115)
[2024-11-28] MEDS: Insulin Lispro 100 UNIT/ML 3 ML VIAL SUBCUT ×3 (11:42→21:56)
[2024-11-28] MEDS: Lactated Ringers 1,000 ML 125 ML IVCONT (12:26)
--- NOTE | 2024-11-28 12:47 | P.PNNP_ITS ---
Subjective Subjective Date of Service: 11/28/24 Interval history: Events noted. Denies any complaints today. Renal ultrasonogram was unremarkable Physical Exam 2 Vital Signs: Vital Signs: Last Vital Signs Temp 98.9 F 11/28/24 11:38 Pulse 81 11/28/24 11:38 Resp 19 11/28/24 11:38 BP 141/74 H 11/28/24 11:38 Pulse Ox 98 11/28/24 11:38 O2 Del Method Room Air 11/28/24 11:38 BMI result Body Mass Index 30.5 Const: Other: General: AO X 3, no acute distress Resp: CTA bilateral CVS: S1,S2,RRR GI: +BS, NT, no distention Skin: No rash Neuro: motor grossly intact Psych: appropriate affect Objective Data Labs 11/26/24 07:13 11/28/24 06:00 Labs: Laboratory Results - last 24 hr 11/27/24 11/27/24 11/27/24 14:22 15:51 20:36 Hold Purple Top Sodium 138 Potassium 5.4 H Chloride 110 H Carbon Dioxide 19 L Anion Gap 14 BUN Creatinine Estim Creat Clear Calc Estimated GFR POC Glucose 149 H 240 H Random Glucose Calcium 11/28/24 11/28/24 11/28/24 06:00 07:35 11:35 Hold Purple Top SEE NOTE Sodium 140 Potassium 5.1 Chloride 113 H Carbon Dioxide 20 L Anion Gap 12 BUN 52 H Creatinine 3.56 H Estim Creat Clear Calc 18.5 Estimated GFR 17 POC Glucose 130 H 175 H Random Glucose 135 H Calcium 8.6 Procedures Date of Service Date of Service: 11/28/24 Assessment & Plan Assessment and plan (1) CKD (chronic kidney disease): Status: Acute Plan Baseline renal function is unknown. He might have a component of acute kidney injury. No obstruction based on ultrasonogram He has significant proteinuria which needs further workup as well. Hyperkalemia Low-potassium diet. Lokelma p.r.n. Continue IV hydration with normal saline keep intake more than output. Serologies pending No indication for dialysis yet. Renal function is gradually improving Baseline to be determined optimize blood pressure . Increase hydralazine to 25 mg PO TID. Avoid intravenous hydralazine for now. Continue to hold NANETTE inhibitor/ARB Time Spent With Patient Time: Total time managing care of this patient today ____ minutes. Progress Note: Quality Stroke Does the patient have a stroke diagnosis?: No
--- NOTE | 2024-11-28 13:10 | MHC.RECOVRN ---
Pts referral sent to [facility]. Pt to present to [facility] after discharge with last dose letter.
[2024-11-28] MEDS: Enoxaparin Sodium 30 MG/0.3 ML SYRINGE SUBCUT (14:15)
[2024-11-28 17:33] LABS: Glucose, Whole Blood 233 mg/dL (60-115)
[2024-11-28] MEDS: 0.9 % Sodium Chloride 1,000 ML 100 ML IVCONT (19:50)
[2024-11-28 20:40] LABS: Glucose, Whole Blood 199 mg/dL (60-115)
[2024-11-28] MEDS: hydrALAZINE HCl 25 MG TABLET PO (21:56)
[2024-11-28] MEDS: Insulin Glargine,Hum.rec.anlog 100 UNIT/ML 10 ML VIAL 20 UNIT SUBCUT (21:57)
[2024-11-29] VITALS: BP 171/67; PULSE 78; RESP 18; TEMP 36.8; O2SAT 98
[2024-11-29 03:44] VITALS: BP 175/65; PULSE 70; RESP 18; TEMP 36.6; O2SAT 98
[2024-11-29] MEDS: Levothyroxine Sodium 100 MCG TABLET PO (06:24)
[2024-11-29] MEDS: 0.9 % Sodium Chloride 1,000 ML 100 ML IVCONT (06:26)
[2024-11-29 07:02] LABS: Glucose, Whole Blood 123 mg/dL (60-115)
[2024-11-29 07:10] LABS: Anion Gap 8 (12-20); Blood Urea Nitrogen 48 mg/dL (9-16); Calcium 8.3 mg/dL (8.4-10.2); Carbon Dioxide 23 mmol/L (22-29); Chloride 115 mmol/L (96-108); Creatinine Clr Calc Pharmacy 17.4; Estimated Glomerular Filt Rate 16; Glucose Random 156 mg/dL (60-115); Potassium 5.1 mmol/L (3.3-5.1); Sodium 141 mmol/L (135-145)
[2024-11-29 07:21] VITALS: BP 160/68; PULSE 73; RESP 18; TEMP 36.8; O2SAT 98
[2024-11-29 07:52] VITALS: PULSE 64; RESP 14; O2SAT 96
[2024-11-29] MEDS: Fluticasone/Vilanterol 200/25 BLST.W.DEV 1 PUFF INHALE (07:52)
[2024-11-29] MEDS: hydrALAZINE HCl 25 MG TABLET PO ×2 (09:52→13:25)
[2024-11-29] MEDS: Atorvastatin Calcium 10 MG TABLET PO (09:52)
[2024-11-29] MEDS: Gabapentin 400 MG CAPSULE PO (09:52)
[2024-11-29] MEDS: amLODIPine Besylate 10 MG TABLET PO (09:53)
[2024-11-29] MEDS: methADONE HCl 20 MG/2 ML ORAL.CONC 30 MG PO (09:54)
--- NOTE | 2024-11-29 09:59 | PM.DS ---
DS: Providers Provider Date of Service: 11/29/24 Date of admission: 11/26/24 12:40 Date of discharge: 11/29/24 Primary care physician: None Physician Consults: 11/26/24 09:09 Consult to Nephrology Stat Consulting Provider: [facility] [place] [facility] Reason for consultation: paco Has provider been notified: Yes 11/26/24 12:36 Consult to Nephrology Routine Consulting Provider: [facility] [place] [facility] Reason for consultation: PACO on CKD Has provider been notified: No 11/27/24 13:45 Addiction Medicine Routine Consulting Provider: Addiction Covering Reason for consultation: opioid dependence Has provider been notified: Yes DS: Diagnosis Discharge Diagnosis (1) CKD (chronic kidney disease): Status: Acute DS: Summary Hospital Course Hospital Course: Admission HPI Chief Complaint: Passing out twice last week A 69-year-old male with a history of hypertension, diabetes mellitus, and hypothyroidism presents with syncope. He reports having two syncopal episodes last week but has difficulty describing the circumstances leading to these episodes. There was no head injury, but he did experience a loss of consciousness (LOC). He reports rib pain; however, X-ray findings are negative. Head CT, facial CT, and cervical spine CT are negative for acute injury. ECG shows anterior NJ of undetermined age. Lab work reveals a creatinine level of 4, with the last known creatinine level of 1.4 in 2020. Hospital course: A 69-year-old male with a history of hypertension, hypothyroidism, and diabetes presented with syncope. He was found to have renal failure, likely chronic. The syncope was of unclear etiology, and the workup was unremarkable, with no evidence of arrhythmia on telemetry. He was noted to have acute kidney injury (PACO) with a creatinine level of 4.0 mg/dL (last known creatinine was 1.4 mg/dL in 2020) and mild hyperkalemia. His medications included HCTZ and losartan at admission. For the syncope, the patient was observed on telemetry, which revealed no malignant arrhythmias, and orthostatic blood pressure measurements were unremarkable. He has not experienced further episodes of syncope. The renal failure is presumed to be chronic. The patient was treated with IV fluids, and his creatinine level stabilized at 3.7 mg/dL. HCTZ and losartan were discontinued. Nephrology evaluated the patient and will follow up with him on an outpatient basis. Hyperkalemia was treated with Lokelma, and losartan was stopped. Hypertension: The patient had significantly elevated blood pressure, which improved after starting hydralazine. He will require further medication adjustments on an outpatient basis. The patient was advised to resume home medications for diabetes, hypothyroidism, hyperlipidemia, and methadone for opioid dependence. Addiction medicine was consulted and has arranged outpatient methadone treatment for the patient. Time Attestation Discharge Coordination Time (in mins): 45 Quality: Safe Use of Opioids Does Pt have an Active Cancer Diagnosis on the Problem List?: No Quality: Stroke Does the patient have a stroke diagnosis?: No Physical Exam Vital Signs: Vital Signs: Last Vital Signs Temp 98.2 F 11/29/24 07:21 Pulse 64 11/29/24 07:52 Resp 14 11/29/24 07:52 BP 160/68 H 11/29/24 07:21 Pulse Ox 98 11/29/24 07:21 O2 Del Method Room Air 11/29/24 07:21 BMI result Body Mass Index 30.5 Const: Other: General: AO X 3, no acute distress Resp: CTA bilateral CVS: S1,S2,RRR GI: +BS, NT, no distention Skin: No rash Neuro: motor grossly intact Psych: appropriate affect DS: Data Data Completed and Pending Labs on day of discharge: Laboratory Results - last 24 hr 11/28/24 11/28/24 11/28/24 11:35 17:29 20:30 Sodium Potassium Chloride Carbon Dioxide Anion Gap BUN Creatinine Estim Creat Clear Calc Estimated GFR POC Glucose 175 H 233 H 199 H Random Glucose Calcium 11/29/24 11/29/24 06:23 06:58 Sodium 141 Potassium 5.1 Chloride 115 H Carbon Dioxide 23 Anion Gap 8 L BUN 48 H Creatinine 3.78 H Estim Creat Clear Calc 17.4 Estimated GFR 16 POC Glucose 123 H Random Glucose 156 H Calcium 8.3 L Discharge Plan Discharge Anticipated Discharge Date/Time: 11/29/24 09:57 Patient Disposition: Home, Self-Care Discharge Diagnosis: PACO, syncope, Referrals: Physician,None [Primary Care Provider] - 1 Week Discharge Medications: Continued latanoprost 0.005 % drops 1 drp ophthalmic (eye) BEDTIME albuterol sulfate 2.5 mg /3 mL (0.083 %) solution for nebulization inhalation ammonium lactate 12 % lotion 1 appl topical DAILY atorvastatin 10 mg tablet 10 mg PO DAILY gabapentin 400 mg capsule 400 mg PO DAILY levothyroxine 100 mcg tablet 100 mcg PO DAILY@0600 amlodipine 10 mg tablet 10 mg PO DAILY ergocalciferol (vitamin D2) [Vitamin D2] 1,250 mcg (50,000 unit) capsule 1,250 mcg PO WE albuterol sulfate 90 mcg/actuation HFA aerosol inhaler 1 puff inhalation Q4-6H PRN (Reason: Shortness Of Breath Or Wheezing) triamcinolone acetonide 0.1 % ointment 1 appl topical BID-TID PRN (Reason: Rash) acetaminophen 500 mg Tablet 1,000 mg PO BID PRN (Reason: Fever Or Pain) insulin asp prt-insulin aspart [Novolog Mix 70-30FlexPen U-100] 100 unit/mL (70-30) insulin pen 40 unit subcut BEDTIME fluticasone furoate-vilanterol [Breo Ellipta] 200-25 mcg/dose blister with device 1 ea inhalation DAILY insulin asp prt-insulin aspart [Novolog Mix 70-30FlexPen U-100] 100 unit/mL (70-30) insulin pen 43 unit subcut DAILY Discontinued losartan-hydrochlorothiazide 100-12.5 mg tablet 1 tab PO DAILY Diet: Advance to usual diet Activity on Discharge: As tolerated Stand Alone Forms: Patient Portal Discharge page Print Language: Mauritian Care Plan Goals: Recovery from acute on chronic renal failure Uncontrolled hypertension Health Concerns: See above Plan of Treatment: Take all your medications as provided Avoid Motrin Follow-up with the kidney doctor in 1-2 weeks Follow-up with your primary care doctor Assessment: See above
[2024-11-29 10:56] LABS: Glucose, Whole Blood 205 mg/dL (60-115)
[2024-11-29 11:22] VITALS: BP 159/79; PULSE 78; RESP 18; TEMP 37.7; O2SAT 97
[2024-11-29] MEDS: Insulin Lispro 100 UNIT/ML 3 ML VIAL SUBCUT (13:25)
--- NOTE | 2024-11-29 15:42 | MHC.CM.PN ---
PT MEDICALLY CLEARED FOR DC HOME SELF CARE, PT'S DTR WILL TRANSPORT
[2024-11-30 06:28] LABS: Complement C3 127 mg/dL (82-185)
--- NOTE | 2024-12-01 13:04 | P.CDIM_ITS ---
PROVIDER RESPONSE TEXT: To clarify, the appropriate diagnosis supported by the clinical indicators: Acute QUERY TEXT: PHYSICIAN'S DOCUMENTATION REQUEST Date of Query: 11/28/2024 02:01 PM EST Patient Name: SARAH COLLINS Admit Date: 11/26/2024 Dear Sergio Otto MD, A review of the medical record indicates additional documentation may be needed. Please review below and update the documentation accordingly. Clinical Indicators: Per Hospitalist Progress Note 11/27/24: mild metabolic acidosis monitor on IVF and replace bicarb Clarify which of the following accurately represents the acuity of the Metabolic acidosis. Possible options might include: Acute Acute on chronic Compensated Chronic stable condition Remission Other (explain) Clinically unable to determine (explain) Thank you, Nickie Santa RN Use of terms such as suspected, likely, concern for, or probable (associated with a specific diagnosi s that is being evaluated, monitored, or treated as if it exists) are acceptable and can be coded in the inpatient se tting, when documented at the time of discharge. Please use your independent medical judgment in providing your response. THIS QUERY IS PART OF THE PERMANENT MEDICAL RECORD
[2024-12-02 13:24] LABS: Prot Elec - Albumin 3.2 g/dL (3.8-4.8); Prot Elec - Alpha1 0.3 g/dL (0.2-0.3); Prot Elec - Alpha2 0.8 g/dL (0.5-0.9); Prot Elec - Beta 1 0.3 g/dL (0.4-0.6); Prot Elec - Beta 2 0.3 g/dL (0.2-0.5); Prot Elec - Gamma 0.8 g/dL (0.8-1.7); Prot Elec - Total Protein 5.7 g/dL (6.1-8.1)
[2024-12-02 22:52] LABS: Myeloperoxidase Antibody <1.0 AI; Proteinase 3 PR3 Antibodies <1.0 AI
== END 2024-11-29 16:01 | disposition home or self-care (01) | DRG 312 ==
LOC: HO.ED 10:47 → HO.EDOVER 12:48 → HO.IMC 11-27 07:26
PROVIDERS: Internal Medicine Hypertension Specialist; Admitting Provider Internal Medicine; Emergency Provider Emergency Medicine; Visit Provider Internal Medicine
DX: R55 Syncope and collapse (principal); E87.21 Acute metabolic acidosis; I12.9 Hypertensive chronic kidney disease with stage 1 through stage 4 chronic kidney disease, or unspecified chronic kidney disease; N18.9 Chronic kidney disease, unspecified; E11.22 Type 2 diabetes mellitus with diabetic chronic kidney disease; E03.9 Hypothyroidism, unspecified; E87.5 Hyperkalemia; Z87.891 Personal history of nicotine dependence; Z79.4 Long term (current) use of insulin; Z79.51 Long term (current) use of inhaled steroids; Z79.890 Hormone replacement therapy; Z79.899 Other long term (current) drug therapy
CPT/HCPCS: 36415; 70450; 70486; 71111; 72125; 76775; 80048; 80051; 80053; 80307; 81001; 82947; 83880; 84165; 84484; 85025; 85610; 86021; 86160; 93005; 94640; 99285; J0360; J1650; J7120

== ENCOUNTER → 2024-11-26 08:50 | Outpatient (BNV) | payer MEDICARE, MEDICAID, SELFPAY | PROVIDERS: Admitting Provider Internal Medicine; Emergency Provider Emergency Medicine; Visit Provider Internal Medicine Cardiovascular Disease | DX: R94.31 Abnormal electrocardiogram [ECG] [EKG] (principal) | CPT/HCPCS: 93010 ==

== ENCOUNTER 2024-11-26 12:40 | Outpatient (BNV) | payer MEDICARE, MEDICAID, SELFPAY | END 2024-11-27 15:25 | PROVIDERS: Admitting Provider Internal Medicine; Emergency Provider Emergency Medicine; Visit Provider Radiology Diagnostic Radiology | DX: E87.5 Hyperkalemia (principal) | CPT/HCPCS: 76775 ==

== ENCOUNTER → 2024-11-26 12:40 | Outpatient (BNV) | payer MEDICARE, MEDICAID, SELFPAY | PROVIDERS: Admitting Provider Internal Medicine; Emergency Provider Emergency Medicine; Visit Provider Internal Medicine Hypertension Specialist | DX: N18.9 Chronic kidney disease, unspecified (principal) | CPT/HCPCS: 99223; 99499 ==

== ENCOUNTER → 2024-11-26 12:40 | Outpatient (BNV) | payer MEDICARE, MEDICAID, SELFPAY | PROVIDERS: Admitting Provider Internal Medicine; Emergency Provider Emergency Medicine; Visit Provider Internal Medicine | DX: N17.9 Acute kidney failure, unspecified (principal); N18.9 Chronic kidney disease, unspecified; R55 Syncope and collapse | CPT/HCPCS: 99223; 99232; 99233 ==